=== PATIENT | male | born 1960 | race Caucasian/White ===

== ENCOUNTER → 2019-06-14 15:16 | Outpatient (BNVA) | payer MEDICARE, SELFPAY | PROVIDERS: Family Provider Family Medicine; PCP Nurse Practitioner; Visit Provider Nurse Practitioner | DX: E78.5 Hyperlipidemia, unspecified (principal); I10 Essential (primary) hypertension; E11.42 Type 2 diabetes mellitus with diabetic polyneuropathy; Z76.89 Persons encountering health services in other specified circumstances | CPT/HCPCS: 80053; 80061 ==

== ENCOUNTER → 2019-06-20 11:23 | Outpatient (BNVA) | payer MEDICARE, SELFPAY | PROVIDERS: Family Provider Family Medicine; PCP Nurse Practitioner; Visit Provider Nurse Practitioner | DX: E11.42 Type 2 diabetes mellitus with diabetic polyneuropathy (principal); I10 Essential (primary) hypertension | CPT/HCPCS: 83036; 85025 ==

== ENCOUNTER → 2019-11-30 13:21 | Outpatient (BNVA) | payer MEDICARE, SELFPAY | PROVIDERS: Family Provider Family Medicine; PCP Nurse Practitioner; Visit Provider Family Medicine | DX: I10 Essential (primary) hypertension (principal); E11.42 Type 2 diabetes mellitus with diabetic polyneuropathy; E78.5 Hyperlipidemia, unspecified; Z68.34 Body mass index [BMI] 34.0-34.9, adult; F17.223 Nicotine dependence, chewing tobacco, with withdrawal | CPT/HCPCS: 80053; 80061; 82043; 83036; 85025 ==

== ENCOUNTER 2019-12-11 20:10 | Emergency (ER) | payer MEDICARE, SELFPAY ==
[2019-12-11 20:35] VITALS: BP 182/92; PULSE 79; RESP 14; TEMP 37; O2SAT 98; BMI 34.7
--- NOTE | 2019-12-11 20:43 | W.ED.UPPEXIN ---
HPI - Extremity Injury (Upper) General: Chief Complaint: Extremity Injury, Upper Stated Complaint: caught finger between forklift and truck Time Seen by Provider: 12/11/19 20:26 Source: patient Mode of arrival: ambulatory Limitations: no limitations History of Present Illness: HPI narrative: Patient is a 59-year-old male who presents to ED today with a complaint of an injury to his left ring finger that he sustained just prior to arrival after catching it between 2 pieces of heavy machinery. Last tetanus is unknown. complaint: injury to: left and finger Onset (ago): hour(s) Place: home Severity: moderate Relieving factors: none Exacerbating factors: none Context: crush Associated symptoms: Reports no associated symptoms Review of Systems Musc: Reports: extremity pain (L ring finger) PFS ED PFSH: Medical History (Updated 12/11/19 @ 21:14 by NEAL Cuello) Hyperlipidemia Hypertension Type 2 diabetes mellitus with diabetic polyneuropathy, without long-term current use of insulin Surgical History History of colon surgery History of elbow surgery right History of hip surgery right Status post left foot surgery Family History Other Cancer Diabetes Diabetes insipidus Heart disease Hypertension Stroke Social History Smoking and tobacco status: current every day smoker smokeless tobacco Smokeless tobacco user: chewing tobacco Smokeless tobacco details: 1 can every 2-3 days Alcohol intake: never History of recent travel: No Physical Exam Const: COMMON NORMALS: no acute distress, patient oriented x3, no limitations and alert Extremity: GENERAL: Yes normal exam except as noted OTHER: pt with distal tip amputation of L ring finger with nail involvement; there does not appear to be exposed bone at this time Neuro: COMMON NORMALS: patient oriented x3, moves all extremities, no focal motor deficits and no sensory deficits noted SENSORIUM/ORIENTATION: Yes alert Skin: OTHER: see extremity assessment Course Vital Signs: Vital signs: Vital Signs Temperature 98.6 F 12/11/19 20:35 Pulse Rate 73 12/11/19 22:07 Respiratory Rate 18 12/11/19 22:07 Blood Pressure 147/81 09/13/20 22:07 Pulse Oximetry 98 12/11/19 22:07 MDM - Extremity Injury (Upper) MDM Narrative: Medical decision making narrative: Patient does not have enough skin left to create skin flap. He would require rongeuring his distal phalanx to create this and I do not feel comfortable doing this from the ED. Finger was soaked, cleaned, and dressed and he will be referred to orthopedics. He will be instructed on wet to dry dressings. Tetanus updated. He was given 1g Ancef here. Imaging Data^: XR L finger: Radiologist's impression: [facility] [address] [place] [address] XRay Report Signed Patient: Baljit Goldstein Unit #: [id number] : 1960 Age/Sex: 59 / M ADM Date: 12/11/19 Loc: ER Room/Bed: Attending Dr: Ordering Provider/Ordering MD: Mica Miller Date of Service: 12/11/19 Procedure(s): XR finger LT min 2V [id number] Accession Number(s): [id number] Report Number: [id number] PROCEDURE INFORMATION: Exam: XR Left Finger(s) Exam date and time: 12/11/2019 9:02 PM Age: 59 years old Clinical indication: Injury or trauma; Injury history: Cut tip of 4th finger left hand by getting it caught between; Initial encounter; Blunt trauma (contusions or hematomas); Ring finger; Injury date: Today; Patient HX: Tip of left 4th finger cut; Additional info: Trauma; 4th. Hand images already done before finger order placed. TECHNIQUE: Imaging protocol: XR Left fingers. Views: Minimum 2 views. COMPARISON: No relevant prior studies available. FINDINGS: Bones/joints: There is traumatic amputation of the tip of the 4th finger. There is a mildly displaced tuft fracture of the medial tip of the 4th distal phalanx. No dislocation. Normal bone mineralization. Soft tissues: Mild soft tissue swelling at the distal 4th finger. No radiopaque foreign body. XR/XR finger LT min 2V [id number] IMPRESSION: 1. There is a mildly displaced tuft fracture of the medial tip of the 4th distal phalanx. 2. There is traumatic amputation of the tip of the 4th finger. 3. Mild soft tissue swelling at the distal 4th finger. Dictated By: Frieda Damian MD Signed By: Frieda Damian MD Signed Date/Time: 12/11/192136 DD/ 35 Discharge Plan Discharge Patient Disposition: Home Clinical Impression: Open fracture of tuft of distal phalanx of finger 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 Qualifiers: Encounter type: initial encounter Qualified Code(s): S68.625A - Partial traumatic transphalangeal amputation of left ring finger, initial encounter Condition: Stable Prescriptions: New hydrocodone-acetaminophen 5-325 mg tablet 1 tab PO Q6H PRN (Reason: pain) Qty: 14 RF: 0 Keflex 500 mg capsule 500 mg PO Q6H 7 Days Qty: 28 RF: 0 No Action aspirin 81 mg tablet,delayed release (DR/EC) 81 mg PO DAILY RF: 0 acetaminophen [Tylenol] 325 mg tablet 325 mg PO QID PRNRF: 0 metformin 1,000 mg tablet 1,000 mg PO BID Qty: 180 RF: 0 hydrochlorothiazide 12.5 mg tablet 12.5 mg PO DAILY Qty: 90 RF: 0 atorvastatin 20 mg tablet 20 mg PO DAILY Qty: 90 RF: 0 pregabalin [Lyrica] 75 mg capsule 75 mg PO BID Qty: 60 RF: 0 (DME) diabetic shoes See Rx Instructions .Route .MEDSUPPLY Qty: 1 RF: 0 losartan 50 mg tablet 50 mg PO DAILY 30 Days Qty: 90 RF: 0 glyburide 5 mg tablet 5 mg PO DAILY Qty: 90 RF: 0 Januvia 100 mg tablet 100 mg PO DAILY Qty: 30 RF: 0 Discharge Orders: Discharge Order (Routine); Ordered 12/11/19 Ordered By: Mica Miller Referrals: Manuela Spencer FNP [Primary Care Provider] - Siena Gracia DO [Family Provider] - Patient Instructions: Finger Amputation (Surgical), Finger Fracture (ED), Finger Amputation (ED), Finger Laceration (ED) Activity Restrictions/Additional Instructions: As discussed you need to continue to do wet-to-dry dressings as instructed. Begin your antibiotics immediately. Case management should contact you shortly to set you up with your orthopedic appointment. As discussed they may allow finger to heal on its own or opt for surgical intervention. Monitor for signs of infection such as redness, swelling, pus-like drainage. Discharge Date/Time: 12/11/19 22:09 Coding Level of Care Code ED Rn Documentation Specialist for Chg Fwd Exam Expanded Problem Focused
--- NOTE | 2019-12-11 20:51 | XRR_ITS ---
PROCEDURE INFORMATION: Exam: XR Left Finger(s) Exam date and time: 12/11/2019 9:02 PM Age: 59 years old Clinical indication: Injury or trauma; Injury history: Cut tip of 4th finger left hand by getting it caught between; Initial encounter; Blunt trauma (contusions or hematomas); Ring finger; Injury date: Today; Patient HX: Tip of left 4th finger cut; Additional info: Trauma; 4th. Hand images already done before finger order placed. TECHNIQUE: Imaging protocol: XR Left fingers. Views: Minimum 2 views. COMPARISON: No relevant prior studies available. FINDINGS: Bones/joints: There is traumatic amputation of the tip of the 4th finger. There is a mildly displaced tuft fracture of the medial tip of the 4th distal phalanx. No dislocation. Normal bone mineralization. Soft tissues: Mild soft tissue swelling at the distal 4th finger. No radiopaque foreign body. XR/XR finger LT min 2V [id number] IMPRESSION: 1. There is a mildly displaced tuft fracture of the medial tip of the 4th distal phalanx. 2. There is traumatic amputation of the tip of the 4th finger. 3. Mild soft tissue swelling at the distal 4th finger.
[2019-12-11] MEDS: ceFAZolin 1,000 MG in sodium chloride 0.9% (plus) 50 ML 100 MG IM (22:01)
[2019-12-11] MEDS: tetanus-diphtheria tox (adult) 0.5 mL SDV IM (22:03)
[2019-12-11] MEDS: HYDROcodone-acetaminophen 5-325 mg Tablet 2 TAB PO (22:06)
[2019-12-11 22:07] VITALS: BP 147/81; PULSE 73; RESP 18; O2SAT 98
--- NOTE | 2019-12-12 09:29 | DCPLANNER ---
continuity manager had message to schedule a follow up appointment for patient with ortho. continuity manager called the ortho clinic, spoke with Pat, gave clinic patients information. continuity manager was told that patients information would be printed and reviewed. Clinic will call patient with appointment information.
--- NOTE | 2019-12-13 13:01 | DCPLANNER ---
Patient had an appointment scheduled for 12.12.19 with ortho. Patient did attend the appointment.
== END 2019-12-11 22:09 | disposition home or self-care (01) ==
PROVIDERS: Emergency Provider Physician Assistant; Family Provider Family Medicine; PCP Nurse Practitioner
DX: S62.635B Displaced fracture of distal phalanx of left ring finger, initial encounter for open fracture (principal); S68.625A Partial traumatic transphalangeal amputation of left ring finger, initial encounter; Z79.82 Long term (current) use of aspirin; E78.5 Hyperlipidemia, unspecified; I10 Essential (primary) hypertension; E11.9 Type 2 diabetes mellitus without complications; F17.220 Nicotine dependence, chewing tobacco, uncomplicated; W31.89XA Contact with other specified machinery, initial encounter; Z23 Encounter for immunization
CPT/HCPCS: 12345; 73140; 90471; 90714; 96365; 96372; 99281; 99283; J0690

== ENCOUNTER → 2019-12-14 09:48 | Outpatient (BNVA) | payer MEDICARE, SELFPAY | PROVIDERS: Family Provider Family Medicine; PCP Nurse Practitioner; Visit Provider Specialist | DX: Z11.59 Encounter for screening for other viral diseases (principal) | CPT/HCPCS: 87635 ==

== ENCOUNTER 2019-12-16 06:46 | Day surgery (SDC) | payer MEDICARE, SELFPAY ==
[2019-12-15 14:22] VITALS: BMI 34.7
[2019-12-16] MEDS: CELEcoxib 200 mg Capsule 400 MG PO (07:10)
[2019-12-16 07:15] VITALS: BP 165/92; PULSE 70; RESP 18; TEMP 36.4; O2SAT 97
[2019-12-16] MEDS: sodium chloride 0.9% 1,000 ML 30 ML IV (07:32)
[2019-12-16] MEDS: vancomycin 1,000 MG in sodium chloride 0.9% 250 ML 250 MG IV (07:33)
[2019-12-16 07:34] LABS: Basophils # 0.1 10^3/uL (0.0-0.1); Eosinophils # 0.3 10^3/uL (0.0-0.8); Hematocrit 44.1 % (42.0-52.0); Hemoglobin 14.5 g/dL (11.7-16.6); Lymphocytes # 2.9 10^3/uL (0.8-4.8); Lymphocytes % 40.2 %; Mean Corpuscular HGB Conc 32.9 g/dL (30.0-36.0); Mean Corpuscular Volume 91.3 fL (80-94); Monocytes # 0.6 10^3/uL (0.2-0.9); Monocytes % 8.6 %; Neutrophils # 3.27 10^3/uL (1.8-7.7); Neutrophils % 45.4 %; Nucleated Red Blood Cells % 0 %; Platelet Count 147 10^3/cmm (130-400); Red Blood Count 4.83 10^6/uL (4.1-5.3); White Blood Count 7.2 10^3/uL (4.0-10.0)
--- NOTE | 2019-12-16 07:39 | P.ANESASSM_ITS ---
Pre-Anesthetic Assessment Pre-Anesthetic Assessment: Height/Weight: Height 1.7 m Weight 100.698 kg Temp Pulse Resp BP Pulse Ox 97.5 F L 70 18 165/92 97 12/16/19 07:15 12/16/19 07:15 12/16/19 07:15 12/16/19 07:15 12/16/19 07:15 Preop Diagnosis: Traumatic partial amputation left ring finger through phalanx Proposed Procedure: Operation Date: 12/16/19 08:30 Proposed Procedures p Left Ring Finger revision Amputation Finger 06871 S68.115A(Left) - Sarah Wray MD Familial anesthetic complications: None Was Beta Eloy taken within 24 hours: N/A Last intake: Intake Last Liquid Date 12/15/19 Last Liquid Time 22:00 Last Solid Date 12/15/19 Last Solid Time 22:00 Social: Social History: Tobacco and No alcohol Comment: chews Exam: Pre-Anes Outpt Exam: alert, oriented x 3, clear to auscultation bilaterally and regular rate & rhythm Airway: Cervical ROM: WNL MP: 3 Dentition: Full Pulmonary: Pulmonary: Sleep apnea (patient refuses CPAP) CV/HEM: CV/HEM: HTN Metabolic: Metabolic: Hyperlipidemia and Morbid obesity Anesthetic Plan: ASA status: 3 Anesthesia: MAC and Regional (specify below) (reyes block) Risk of > 500 ml blood loss (7ml/kg in children): No Meds/Allergies Current Medications: Current Medications Generic Name Dose Route Start Last Admin Trade Name Freq PRN Reason Stop Dose Admin Vancomycin HCl 1,0 00 mg/ 250 mls @ 250 mls /hr 12/16/19 07:30 12/16/19 07:33 Sodium Chloride IV 12/16/19 08:29 250 mls/hr ONCE ONE Administration Protocol Sodium Chloride 1,000 mls @ 30 ml s/hr 12/16/19 07:15 12/16/19 07:32 Sodium Chloride 0.9% IV 12/17/19 07:14 30 mls/hr .Q24H MARIE Administration PFSH Anesthesia PFSH: Medical History Hyperlipidemia Hypertension Type 2 diabetes mellitus with diabetic polyneuropathy, without long-term current use of insulin Surgical History History of colon surgery History of elbow surgery right History of hip surgery right Status post left foot surgery Family History Other Cancer Diabetes Diabetes insipidus Heart disease Hypertension Stroke Social History Smoking and tobacco status: current every day smoker smokeless tobacco Smokeless tobacco user: chewing tobacco Smokeless tobacco details: 1 can every 2-3 days Alcohol intake: never History of recent travel: No Data Anesthesia CBC & Chem 7: 12/16/19 07:25 12/16/19 07:25 Other Labs: Laboratory Results - last 48 hr 12/16/19 07:25 WBC 7.2 RBC 4.83 Hgb 14.5 Hct 44.1 MCV 91.3 MCH 30.0 MCHC 32.9 RDW 12.0 L Plt Count 147 MPV 10.0 Neut % (Auto) 45.4 Lymph % (Auto) 40.2 Carroll % (Auto) 8.6 Eos % (Auto) 4.0 Baso % (Auto) 1.0 Neut # (Auto) 3.27 Lymph # (Auto) 2.9 Carroll # (Auto) 0.6 Eos # (Auto) 0.3 Baso # (Auto) 0.1 Nucleated RBC % (auto) 0 Nucleated RBCs # 0.0 Cardiac Studies: No Data to Display
[2019-12-16 07:46] LABS: Glucose Point of Care 163 mg/dL (70-110)
[2019-12-16 07:55] LABS: Anion Gap 15.9 (5-19); Blood Urea Nitrogen 12 mg/dL (6-20); Calcium 9.9 mg/dL (8.5-10.5); Carbon Dioxide 24 mmol/L (22-29); Chloride 101 mmol/L (98-107); Glomerular Filtration Rate 68.8 mL/min (90-130); Glucose 174 mg/dL (65-115); Osmolality Calculated 288 mOsm/kg (285-295); Potassium 3.9 mmol/L (3.5-5.1); Sodium 137 mmol/L (136-145)
--- NOTE | 2019-12-16 08:07 | W.PM.OPSUD ---
Surgery/Procedure H&P Update DATE OF PROCEDURE: December 16, 2019 DATE H&P PERFORMED: 12/14/19 H&P UPDATE INFORMATION: I have reviewed H&P completed within last 30 days, I have examined patient prior to procedure and H&P is in [facility] EMR on date indicated PREOP DIAGNOSIS: Traumatic partial amputation left ring finger through phalanx PLANNED PROCEDURE: Operation Date: 12/16/19 08:30 Proposed Procedures p Left Ring Finger revision Amputation Finger 12383 S68.115A(Left) - Sarah Wray MD Related Problem List Diagnoses (1) 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: Qualifiers: Encounter type: initial encounter Qualified Code(s): S68.625A - Partial traumatic transphalangeal amputation of left ring finger, initial encounter (2) Open fracture of tuft of distal phalanx of finger:
[2019-12-16] MEDS: ceFAZolin 1,000 mg SDV 1000 MG IRRIGATION (09:11)
[2019-12-16] MEDS: silvasorb gel 44.4 mL 1 APPLIC TOPICAL (09:18)
[2019-12-16 09:46] VITALS: BP 122/85; PULSE 84; RESP 18; TEMP 36.4; O2SAT 95
--- NOTE | 2019-12-16 09:51 | PM.OP ---
Operative Report Date of procedure: December 16, 2019 Pre-op Diagnosis: Traumatic partial amputation left ring finger through distal phalanx Post-op diagnosis: same Post-op Findings: Degloving injury with exposed distal phalanx left ring finger Procedure Done: Revision amputation with removal of bone and soft tissues. Nail bed ablation, sharp. Wound closure. Implants: None Specimens removed/disposition: Bone, disposed of Pathology: none sent Surgeon: Sarah Wray Research Project Coordinator: None Anesthesia: MAC (With Matador block) Estimated blood loss (mL): 5 Tourniquet time (min): 40 Tourniquet time: At 250 mmHg IV fluids (mL): 500 Urine output (mL): 0 Complications: None Findings: Degloving injury to the distal left ring finger with exposed bone involving the distal phalanx. Condition: stable Disposition: same day Brief History: This 59-year-old gentleman was in his usual state of health when he got his finger caught between a trailer and his bumper. He pulled his finger out causing a degloving injury as well as a distal phalanx fracture with a small loss of bone and definite loss of soft tissue. He presented to the office with obvious degloving injury and exposed bone. He therefore was scheduled for the above procedure. Procedure: Patient was brought to the operating theater. He was placed on the operating room table. A Matador block was administered without difficulty. Patient tolerated it well. 1 g of vancomycin was administered. A tourniquet was placed high on the arm and was elevated for the Matador block. This followed exsanguination of the arm. Tourniquet time was 40 minutes at 250 mmHg. Surgical pause was performed prior to commencement of the surgical procedure. At the time of the surgical pause we identified the site and side of surgery. We also identified the patient's identity and appropriate administration of IV antibiotics. Following the surgical pause, an incision was made over the tip of the finger longitudinally. This allowed us to debride soft tissue which was obviously somewhat necrotic. We were able to expose the distal aspect of the distal phalanx, and this was removed with a bone biter. It was smoothed with a rongeur and subsequently more bone was removed as necessary to provide a non-tension closure. The nailbed was also removed. A sharp ablation was accomplished of the germinal matrix, however, this was not done aggressively as this was necessary soft tissue for closure. Necrotic areas were debrided. These remainder of the granulation tissue was freshened. We were then able to close with a mattress type III 0 nylon interrupted closure. Following this, silver sorb was placed with an Adaptic and tube gauze dressing. He will be discharged home to follow-up with me in the office. There were no complications and no specimens. Associated Problem List Diagnoses (1) 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: Qualifiers: Encounter type: initial encounter Qualified Code(s): S68.625A - Partial traumatic transphalangeal amputation of left ring finger, initial encounter (2) Open fracture of tuft of distal phalanx of finger:
--- NOTE | 2019-12-16 09:57 | ANE.PACU2 ---
Inpatient post-anesthesia follow up: Airway intact: Yes Vital signs: Temperature 97.6 F Pulse Rate 84 Respiratory Rate 18 Blood Pressure 122/85 Pulse Oximetry 95 Oxygen Delivery Me thod Room Air Oxygen Flow Rate Fraction of Inspir ed Oxygen Hydration adequate: Yes Nausea and vomiting: No Pain level: 1 Mental status: Baseline
[2019-12-16 09:59] VITALS: BP 137/78; PULSE 74; RESP 18; TEMP 36.4; O2SAT 97
== END 2019-12-16 10:15 | disposition home or self-care (01) ==
PROVIDERS: Family Provider Family Medicine; PCP Nurse Practitioner; Visit Provider Specialist
PROC: (CPT 26951; principal; 2019-12-16 08:30)
DX: S68.625A Partial traumatic transphalangeal amputation of left ring finger, initial encounter (principal); G47.30 Sleep apnea, unspecified; I10 Essential (primary) hypertension; E78.5 Hyperlipidemia, unspecified; E66.01 Morbid (severe) obesity due to excess calories; E11.42 Type 2 diabetes mellitus with diabetic polyneuropathy; F17.220 Nicotine dependence, chewing tobacco, uncomplicated; Z79.82 Long term (current) use of aspirin; Z79.84 Long term (current) use of oral hypoglycemic drugs; W23.0XXA Caught, crushed, jammed, or pinched between moving objects, initial encounter; Z68.34 Body mass index [BMI] 34.0-34.9, adult
CPT/HCPCS: 26951; 12345; 36416; 80048; 82962; 85025; 96365; J0131; J0690; J2250; J2405; J2704; J3370; J7030; J7050

== ENCOUNTER → 2019-12-29 14:23 | Outpatient (BNVA) | payer MEDICARE, SELFPAY | PROVIDERS: Family Provider Family Medicine; PCP Nurse Practitioner; Visit Provider Specialist | DX: S68.625A Partial traumatic transphalangeal amputation of left ring finger, initial encounter (principal); X58.XXXA Exposure to other specified factors, initial encounter | CPT/HCPCS: 73140 ==

== ENCOUNTER → 2019-12-30 13:14 | Outpatient (BNVA) | payer MEDICARE, SELFPAY | PROVIDERS: Family Provider Family Medicine; PCP Nurse Practitioner; Visit Provider Family Medicine | DX: R79.89 Other specified abnormal findings of blood chemistry (principal); E11.42 Type 2 diabetes mellitus with diabetic polyneuropathy; F17.299 Nicotine dependence, other tobacco product, with unspecified nicotine-induced disorders; R74.8 Abnormal levels of other serum enzymes | CPT/HCPCS: 80053; 80074 ==

== ENCOUNTER 2020-02-22 12:50 | Outpatient (CLI) | payer MEDICARE, SELFPAY ==
--- NOTE | 2020-02-22 13:30 | US_ITS ---
WS: [id number] RIGHT UPPER QUADRANT ULTRASOUND HISTORY: elevated LFTs COMPARISON: 09/03/2015 Liver: 17.4 cm in length. Liver is moderately enlarged with coarse echotexture. Mild hepatic steatosi s. No mass or bile duct dilatation. Gallbladder: No gallbladder identified. Denies prior history of cholecystectomy. CBD: 0.7 cm Pancreas: Tail of the pancreas is not visualized. Right kidney: 11.7 cm in length. Normal size and echogenicity. No hydronephrosis or mass. Aorta and IVC: Unremarkable abdominal aorta and IVC. No ascites. US/US abdomen limited [id number] IMPRESSION: 1. Mild hepatic steatosis and hepatomegaly. 2. Gallbladder not identified. Patient denies having a prior cholecystectomy.
== END 2020-02-22 12:51 | disposition home or self-care (01) ==
LOC: US 12:53
PROVIDERS: PCP Nurse Practitioner; Visit Provider Family Medicine
DX: R94.5 Abnormal results of liver function studies (principal)
CPT/HCPCS: 76705

== ENCOUNTER → 2020-03-01 09:00 | Outpatient (BNVA) | payer MEDICARE, SELFPAY | PROVIDERS: PCP Family Medicine; Visit Provider Family Medicine | DX: E11.42 Type 2 diabetes mellitus with diabetic polyneuropathy (principal) | CPT/HCPCS: 80053; 83036 ==

== ENCOUNTER 2020-05-23 12:46 | Outpatient (CLI) | payer MEDICARE, SELFPAY ==
--- NOTE | 2020-05-23 12:52 | XR_ITS ---
WS: [id number] LUMBAR SPINE: 3 VIEWS TECHNIQUE: AP, lateral and L5-S1 spot. HISTORY: low back pain COMPARISON: None available. Lumbar vertebra are normally aligned. Mild disc space narrowing throughout the lumbar spine. No fractures. Mild facet joint arthritis at L4 -5 and L5-S1. Pedicles are all identified. SI joints are symmetric bilaterally. No soft tissue abnormalities. XR/XR lumbar spine 2-3V* [id number] IMPRESSION: 1. Mild lumbar spondylosis. No fracture. 2. Mild facet joint arthritis at L4-5 and L5-S1.
== END 2020-05-23 12:47 | disposition home or self-care (01) ==
LOC: RADWPI 12:52
PROVIDERS: PCP Family Medicine; Visit Provider Family Medicine
DX: M47.816 Spondylosis without myelopathy or radiculopathy, lumbar region (principal); M47.817 Spondylosis without myelopathy or radiculopathy, lumbosacral region
CPT/HCPCS: 72100; 80053

== ENCOUNTER 2020-06-21 09:42 | Outpatient (CLI) | payer MEDICARE, SELFPAY ==
--- NOTE | 2020-06-21 09:50 | XR_ITS ---
WS: [id number] PROCEDURE: XR chest 2V* [id number] CLINICAL INFORMATION: sob COMPARISON: FINDINGS: Heart: Normal cardiac silhouette. Lungs: Lungs are clear. No consolidation or pleural fluid. No acute pulmonary infiltrates. Bones: Mild thoracic curve. Mild thoracic kyphosis. Hypertrophic changes mid and lower thoracic spine . XR/XR chest 2V* [id number] IMPRESSION: No acute pulmonary infiltrates. No acute chest findings.
== END 2020-06-21 09:43 | disposition home or self-care (01) ==
PROVIDERS: PCP Family Medicine; Visit Provider Family Medicine
DX: R06.02 Shortness of breath (principal); E11.42 Type 2 diabetes mellitus with diabetic polyneuropathy
CPT/HCPCS: 71046; 80061; 82043; 83036

== ENCOUNTER → 2020-08-21 09:27 | Outpatient (BNVA) | payer MEDICARE, SELFPAY | PROVIDERS: PCP Family Medicine; Visit Provider Family Medicine | DX: E11.42 Type 2 diabetes mellitus with diabetic polyneuropathy (principal); H69.80 Other specified disorders of Eustachian tube, unspecified ear | CPT/HCPCS: 80048; 85025 ==

== ENCOUNTER → 2020-11-20 10:52 | Outpatient (BNVA) | payer MEDICARE, SELFPAY | PROVIDERS: PCP Family Medicine; Visit Provider Family Medicine | DX: E11.42 Type 2 diabetes mellitus with diabetic polyneuropathy (principal); B35.4 Tinea corporis | CPT/HCPCS: 80053; 83036 ==

== ENCOUNTER 2021-02-08 14:19 | Inpatient (IN) | payer MEDICARE, SELFPAY ==
[2021-02-08 14:37] VITALS: BP 172/82; PULSE 81; RESP 18; TEMP 36.7; O2SAT 99; BMI 33.6
--- NOTE | 2021-02-08 14:51 | XR_ITS ---
WS: [id number] Right foot, 3 views, 02/08/2021 Clinical Data: foot pain Comparison: None. Findings: No fractures or dislocations are seen. No bone destruction or erosion is noted. The joint spaces and soft tissues are normal. XR/XR foot RT min 3V* [id number] Impression: Negative right foot.
--- NOTE | 2021-02-08 14:53 | ED_ITS ---
HPI - Extremity Problem General: Chief complaint: Extremity Injury, Lower Stated complaint: Injury to Right Foot Time Seen by Provider: 02/08/21 14:51 History of Present Illness: HPI Narrative: 60-year-old male presents emergency room with large amount of swelling to his right foot. Patient puncture wound to his foot 3 days ago. He was seen initially started antibiotics has had significant increase in swelling of the foot since then increasing pain per pr ogressing proximal. He denies any fever sweats and chills. Patient does have a history of diabetes mellitus. MD Complaint: extremity pain and extremity swelling Onset (ago): day(s) Pain Consistency: constant Location: right Quality: aching Radiation: proximal Relieving factors: nothing Exacerbating factors: nothing Associated symptoms: Deny arthralgias, chest pain, fever(s), myalgias, rash or short of breath Review of Systems Const: Denies: fever(s) ENMT: Denies: throat pain, ear or mastoid pain, nasal discharge or nasal congestion Card: Denies: chest pain Resp: Denies: dyspnea, productive cough or non-productive cough GI: Denies: abdominal pain, nausea, vomiting, hematemesis, coffee ground emesis, diarrhea, constipation, bloating, hematochezia or melena : Denies: flank pain, dysuria, urinary frequency or urinary urgency Skin/Breast: Denies: rash PFSH ED PFSH: Medical History (Updated 02/09/21 @ 11:50 by Gio Dietrich DO) Diabetic neuropathy Hyperlipidemia Hypertension Type 2 diabetes mellitus with diabetic polyneuropathy, without long-term current use of insulin Surgical History History of colon surgery History of elbow surgery right History of hip surgery right Status post left foot surgery Family History Other Cancer Diabetes Diabetes insipidus Heart disease Hypertension Stroke Social History Smoking and tobacco status: current every day smoker (chew) smokeless tobacco Smokeless tobacco user: chewing tobacco Smokeless tobacco details: 1 can every 2-3 days Alcohol intake: never Lives independently: Yes Household members: significant other Marital status: Current occupational status: disabled History of recent travel: No Physical Exam Const: COMMON NORMALS: no acute distress GENERAL APPEARANCE: cooperative and comfortable ORIENTATION/CONSCIOUSNESS: Yes awake, Yes oriented to person, Yes oriented to place and Yes oriented to time HENMT: COMMON NORMALS: normocephalic, atraumatic and hearing grossly normal bilaterally HEAD & SCALP: normocephalic and atraumatic Neck/C-Spine: COMMON NORMALS: no JVD Resp: COMMON NORMALS: normal respiratory effort, No retractions, No use of a ccessory muscles and clear to auscultation bilaterally AUSCULTATION: clear to auscultation bilaterally Cardio: COMMON NORMALS: no JVD, regular rate, regular rhythm and No murmurs present (Cardio) RATE: regular rate RHYTHM: regular rhythm GI: COMMON NORMALS: Soft to palpation and No hepatosplenomegaly present AUSCULTATION: Yes normoactive bowel sounds PALPATION: Yes Soft to palpation, No Tenderness to palpation present (GI), No Guarding due to palpation present (GI) and Yes No hepatosplenomegaly present Extremity: OTHER: Violaceous discoloration of the foot to the level of the ankle. There is no evidence of active drainage. There is swelling mild induration Neuro: SENSORIUM/ORIENTATION: Yes oriented to person, Yes oriented to place and Yes oriented to time Skin: COMMON NORMALS: no rashes or lesions noted GENERAL SKIN EXAM: no rashes or lesions noted Course Vital Signs: Vital signs: Vital Signs Temperature 97.9 F 02/09/21 11:31 Pulse Rate 77 02/09/21 11:31 Respiratory Rate 16 02/09/21 11:31 Blood Pressure 126/73 02/09/21 11:31 Pulse Oximetry 94 02/09/21 11:31 MDM - Extremity (Nontraumatic) MDM Narrative: Medical decision making narrative: Initial read of the venous duplex by the tech was reported not have a DVT. Radiology read is having some small amount of debris in the right common femoral and superficial femoral. Is nonocclusive however. CT does show abscess formation along the first metatarsal. Given the patient's history of diabetes and progression of this and the CT findings he did will require hospitalization. Discussed with hospitalist. Orders are written consult Dr. Spence in the event that the patient needs surgical intervention. Have discussed Dr. Spence as well. Lab Data: Labs: Lab Results 02/08/21 02/08/21 02/08/21 13:50 13:50 13:50 WBC 10.7 10^3/uL H 10 ^3/uL (4.0-10.0) RBC 5.03 10^6/uL 10^6 /uL (4.1-5.3) Hgb 14.5 g/dL g/dL (11.7-16.6) Hct 44.7 % % (42.0-52.0) MCV 88.9 fl fl (80-94) MCH 28.8 pg pg (28.0-34.0) MCHC 32.4 g/dL g/dL (30.0-36.0) RDW 12.3 % % (12.1-15.1) Plt Count 263 10^3/cmm 10^3 /cmm (130-400) MPV 9.4 fL fL (7.4-10.4) Neut % (Auto) 68.0 % % Lymph % (Auto) 16.9 % % [place] % (Auto) 10.7 % % Eos % (Auto) 2.8 % % Baso % (Auto) 0.9 % % Neut # (Auto) 7.31 10^3/uL 10^3 /uL (1.8-7.7) Lymph # (Auto) 1.8 10^3/uL 10^3/ uL (0.8-4.8) [place] # (Auto) 1.2 10^3/uL H 10^ 3/uL (0.2-0.9) Eos # (Auto) 0.3 10^3/uL 10^3/ uL (0.0-0.8) Baso # (Auto) 0.1 10^3/uL 10^3/ uL (0.0-0.1) Nucleated RBC % (a uto) 0 % % Nucleated RBCs # 0.0 /100WBC /100W BC APTT Sodium 132 mmol/L L mmol /L (136-145) Potassium 3.8 mmol/L mmol/L (3.5-5.1) Chloride 94 mmol/L L mmol/ L (98-107) Carbon Dioxide 25 mmol/L mmol/L (22-29) Anion Gap 16.8 (5-19) BUN 14 mg/dL mg/dL (6-20) Creatinine 1.0 mg/dL mg/dL (0.7-1.2) GFR Calculation 76.5 mL/min L mL/ min (90-130) Glucose 179 mg/dL H mg/dL (65-115) POC Glucose Estimat Average Gl ucose 203 Hemoglobin A1c 8.7 % H % (4.0-6.0) Calculated Osmolal ity 279 mOsm/kg L mOs m/kg (285-295) Calcium 10.3 mg/dL mg/dL (8.5-10.5) Total Bilirubin 0.9 mg/dL mg/dL (0.15-1.2) AST 26 U/L U/L (0-40) ALT 35 U/L U/L (0-41) Alkaline Phosphata se 123 IU/L IU/L (40-130) Total Protein 8.5 g/dL g/dL (6.6-8.7) Albumin 4.1 g/dL g/dL (3.5-5.2) Globulin 4.4 g/dL g/dL (1.3-4.6) 02/08/21 02/09/21 02/09/21 23:06 05:00 05:00 WBC 10.2 10^3/uL H 10 ^3/uL (4.0-10.0) RBC 4.74 10^6/uL 10^6 /uL (4.1-5.3) Hgb 13.8 g/dL g/dL (11.7-16.6) Hct 43.2 % % (42.0-52.0) MCV 91.1 fl fl (80-94) MCH 29.1 pg pg (28.0-34.0) MCHC 31.9 g/dL g/dL (30.0-36.0) RDW 12.4 % % (12.1-15.1) Plt Count 253 10^3/cmm 10^3 /cmm (130-400) MPV 9.3 fL fL (7.4-10.4) Neut % (Auto) 56.9 % % Lymph % (Auto) 27.9 % % [place] % (Auto) 9.3 % % Eos % (Auto) 3.7 % % Baso % (Auto) 0.9 % % Neut # (Auto) 5.80 10^3/uL 10^3 /uL (1.8-7.7) Lymph # (Auto) 2.9 10^3/uL 10^3/ uL (0.8-4.8) [place] # (Auto) 1.0 10^3/uL H 10^ 3/uL (0.2-0.9) Eos # (Auto) 0.4 10^3/uL 10^3/ uL (0.0-0.8) Baso # (Auto) 0.1 10^3/uL 10^3/ uL (0.0-0.1) Nucleated RBC % (a uto) 0 % % Nucleated RBCs # 0.0 /100WBC /100W BC APTT 29.5 SECONDS SECO NDS (23.9-36.7) Sodium 138 mmol/L mmol/L (136-145) Potassium 4.0 mmol/L mmol/L (3.5-5.1) Chloride 99 mmol/L mmol/L (98-107) Carbon Dioxide 25 mmol/L mmol/L (22-29) Anion Gap 18.0 (5-19) BUN 16 mg/dL mg/dL (6-20) Creatinine 1.3 mg/dL H mg/dL (0.7-1.2) GFR Calculation 56.5 mL/min L mL/ min (90-130) Glucose 181 mg/dL H mg/dL (65-115) POC Glucose Estimat Average Gl ucose Hemoglobin A1c Calculated Osmolal ity 292 mOsm/kg mOsm/ kg (285-295) Calcium 10.0 mg/dL mg/dL (8.5-10.5) Total Bilirubin 0.7 mg/dL mg/dL (0.15-1.2) AST 27 U/L U/L (0-40) ALT 35 U/L U/L (0-41) Alkaline Phosphata se 136 IU/L H IU/L (40-130) Total Protein 7.7 g/dL g/dL (6.6-8.7) Albumin 3.6 g/dL g/dL (3.5-5.2) Globulin 4.1 g/dL g/dL (1.3-4.6) 02/09/21 02/09/21 05:00 06:11 WBC RBC Hgb Hct MCV MCH MCHC RDW Plt Count MPV Neut % (Auto) Lymph % (Auto) [place] % (Auto) Eos % (Auto) Baso % (Auto) Neut # (Auto) Lymph # (Auto) [place] # (Auto) Eos # (Auto) Baso # (Auto) Nucleated RBC % (a uto) Nucleated RBCs # APTT 46.4 SECONDS H D SECONDS (23.9-36.7) Sodium Potassium Chloride Carbon Dioxide Anion Gap BUN Creatinine GFR Calculation Glucose POC Glucose 144 mg/dL H mg/dL (70-110) Estimat Average Gl ucose Hemoglobin A1c Calculated Osmolal ity Calcium Total Bilirubin AST ALT Alkaline Phosphata se Total Protein Albumin Globulin Discharge Plan Discharge Patient Disposition: Admitted As Inpatient Admit Provider: Onofre Pineda Clinical Impression: Diabetic foot infection, Foot abscess, Type 2 diabetes mellitus with diabetic polyneuropathy, without long-term current use of insulin, Hypertension, Non- occlusive thrombus Condition: Stable Coding Level of Care Code ED Pharmaceutical Sales Representative for Chg Fwd Exam Detailed
--- NOTE | 2021-02-08 14:57 | USCV_ITS ---
Baljit Goldstein Age: 60 Gender: M : 1960 Exam Date: 02/08/2021 15:15 Ordering Phys: Gio Dietrich DO Technologist: Ade Aguero Exam Location: [facility] – [place] Indication: PAIN R 1ST TOE AND RT KNEE HISTORY: Pain Rt. 1st toe and Rt. Knee. PROCEDURES: The venous duplex Doppler examination of both lower extremities was performed in the standard fashion. The following venous structures were evaluated: common femoral vein, profunda vein, proximal portion of the greater saphenous vein, superficial femoral vein, and the popliteal vein. In addition, the posterior tibial and peroneal trunk were evaluated. Serial compression, augmentation maneuvers, and spectral Doppler flow evaluation were performed. FINDINGS: There is debris along the edge of the Rt. CFV and SFV. It is not obstructive. The vein collapses and flow is easily augmented. The Rt. SSV contains calcified internal debris. All vessels studied have augmentable flow and compression. There is a? Chu's cyst Rt pop fossa. CONCLUSIONS Small amount of debris in the right CFV and SFV likely a small amount of thrombus. No occlusive DVT RLE No evidence of left lower extremity DVT. Rex Elizabeth MD (Electronically Signed) Final Date: 08 February 2021 17:44 S
[2021-02-08 15:58] LABS: Basophils # 0.1 10^3/uL (0.0-0.1); Basophils % 0.9 %; Eosinophils # 0.3 10^3/uL (0.0-0.8); Eosinophils % 2.8 %; Hematocrit 44.7 % (42.0-52.0); Hemoglobin 14.5 g/dL (11.7-16.6); Lymphocytes # 1.8 10^3/uL (0.8-4.8); Lymphocytes % 16.9 %; Mean Corpuscular HGB Conc 32.4 g/dL (30.0-36.0); Mean Corpuscular Hemoglobin 28.8 pg (28.0-34.0); Mean Corpuscular Volume 88.9 fl (80-94); Mean Platelet Volume 9.4 fL (7.4-10.4); Monocytes # 1.2 10^3/uL (0.2-0.9); Monocytes % 10.7 %; Neutrophils # 7.31 10^3/uL (1.8-7.7); Nucleated Red Blood Cells % 0 %; Platelet Count 263 10^3/cmm (130-400); Red Blood Count 5.03 10^6/uL (4.1-5.3); Red Cell Distribution Width 12.3 % (12.1-15.1); White Blood Count 10.7 10^3/uL (4.0-10.0)
[2021-02-08 16:14] LABS: Alanine Aminotransferase 35 U/L (0-41); Albumin Level 4.1 g/dL (3.5-5.2); Alkaline Phosphatase 123 IU/L (40-130); Anion Gap 16.8 (5-19); Aspartate Amino Transferase 26 U/L (0-40); Blood Urea Nitrogen 14 mg/dL (6-20); Calcium 10.3 mg/dL (8.5-10.5); Carbon Dioxide 25 mmol/L (22-29); Chloride 94 mmol/L (98-107); Globulin 4.4 g/dL (1.3-4.6); Glomerular Filtration Rate 76.5 mL/min (90-130); Glucose 179 mg/dL (65-115); Osmolality Calculated 279 mOsm/kg (285-295); Potassium 3.8 mmol/L (3.5-5.1); Sodium 132 mmol/L (136-145); Total Bilirubin 0.9 mg/dL (0.15-1.2); Total Protein 8.5 g/dL (6.6-8.7)
--- NOTE | 2021-02-08 16:31 | CTR_ITS ---
PROCEDURE INFORMATION: Exam: CT Right Lower Extremity With Contrast, Foot Exam date and time: 02/08/2021 4:31 PM Age: 60 years old Clinical indication: Injury or trauma; Puncture; Right; Without foreign body; Injury date: 02-03-21; Patient HX: R foot swelling and redness after stepping on a nail 02-03. Entry ball of foot medial to 1st mt; Additional info: Swelling/infection TECHNIQUE: Imaging protocol: CT of the Right lower extremity with intravenous contrast was performed. Exam focused on the foot. Radiation optimization: All CT scans at this facility use at least one of these dose optimization techniques: automated exposure control; mA and/or kV adjustment per patient size (includes targeted exams where dose is matched to clinical indication); or iterative reconstruction. Contrast material: OMNI 300; Contrast volume: 95 ml; Contrast route: INTRAVENOUS (IV); COMPARISON: CR XR foot RT min 3V* [id number] 02/08/2021 3:01 PM RADIATION DOSE METRICS: Total DLP (mGy-cm): 158.26 FINDINGS: Bones/joints: Normal. No acute fracture or dislocation. Soft tissues: 10 mm suspected focal fluid collection with surrounding subcutaneous edema seen at lateral aspect of the 1st metatarsal head in the subcutaneous fat suggestive of a small abscess, best seen series 2, image 118. CT/CT foot RT w con [id number] IMPRESSION: 10 mm suspected focal fluid collection with surrounding subcutaneous edema seen at lateral aspect of the 1st metatarsal head in the subcutaneous fat suggestive of a small abscess, best seen series 2, image 118. Radiation Dose CTDIVOL = (mGy): DLP = 158.26 (mGy-cm)
[2021-02-08] MEDS: iohexol 300 mg/mL 100 mL Btl IV (17:15)
[2021-02-08] MEDS: piperacillin-tazobactam 3.375 GM in sodium chloride 0.9% (plus) 50 ML IV (18:49)
--- NOTE | 2021-02-08 19:05 | PC.NURSE ---
report given to anshul jones assumed care.
[2021-02-08] MEDS: vancomycin 1,000 MG in sodium chloride 0.9% 250 ML 250 MG IV (19:29)
[2021-02-08] MEDS: HYDROcodone-acetaminophen 5-325 mg Tablet 1 TAB PO (19:38)
[2021-02-08] MEDS: sodium chloride 0.9% 1,000 ML 100 ML IV (19:39)
--- NOTE | 2021-02-08 20:09 | PM.HP ---
Providers/Chief Complaint Admitting Physician: Onofre Pineda Primary Care Provider: Felipa García DO Chief Complaint: Injury to Right Foot History of Present Illness Pleasant 60-year-old gentleman with history of DM 2, HTN, HLD, had stepped on a nail 6 days ago which pierced through his boot into his right foot, with swelling of his foot, has been for 3 days on cephalexin. Also has been having pain at the right knee. Chills at home. Had diffuse body aches. Here leukocytosis 10.7, currently afebrile, on 02/[address] with 10 mm suspected focal fluid collection with surrounding subcutaneous edema seen at lateral aspect of first metatarsal head in the subcutaneous fat suggestive of small abscess. Venous duplex with small amount of debris in the right CFV and SFV likely a small amount of thrombus. No occlusive DVT right lower extremity. No evidence of left lower extremity DVT. Blood cultures were collected, he was started on Zosyn, vancomycin. Review of Systems Const: Reports: chills and body aches; Denies: fever(s) Eyes: Denies: change in vision or eye redness ENMT: Denies: throat pain, oral sores or ear or mastoid pain Card: Denies: chest pain, edema, pre-syncope or dyspnea on exertion Resp: Denies: dyspnea, productive cough, change in phlegm color or hemoptysis GI: Denies: abdominal pain, nausea, vomiting, diarrhea, constipation, hematochezia or melena : Denies: flank pain, difficulty urinating, urinary frequency or hematuria Musc: Reports: extremity pain (R foot), extremity swelling (R foot) and joint swelling (R knee); Denies: back pain Skin/Breast: Reports: erythema (R foot); Denies: sores or new lesions Neuro: Denies: headache(s), numbness in extremities, weakness in extremities, dizziness, confusion or seizure-like activity Endo: Denies: polyuria or polydipsia Mahad/Lymph: Denies: easy bleeding or purpura All/Imm: Denies: urticaria, throat swelling or tongue swelling Medications/Allergies Home Medications Medication Instructions Recorded Confirmed Last Taken Type acetaminophen 325 mg tablet 325 mg PO QID PRN 06/11/19 02/08/21 12/15/19 History aspirin 81 mg tablet,delayed 81 mg PO DAILY 06/11/19 02/08/21 02/08/21 History release diabetic shoes #1 ea 11/30/19 02/08/21 Unknown Rx hydrocodone-acetaminophen 1 tab PO Q6H PRN #30 tab 12/16/19 02/08/21 Unknown Rx pregabalin 50 mg capsule 50 mg PO BID #180 cap 05/23/20 02/08/21 Unknown Rx fluticasone propionate 50 2 spray INTRANASAL DAILY 90 Days 09/21/20 02/08/21 02/08/21 Rx mcg/actuation nasal #16 g spray,suspension atorvastatin 20 mg tablet 20 mg PO DAILY #90 tab 11/20/20 02/08/21 02/08/21 Rx clotrimazole 1 % topical cream 1 applic TOPICAL BID 28 Days #30 g 11/20/20 02/08/21 Unknown Rx hydrochlorothiazide 12.5 mg tablet 12.5 mg PO DAILY #90 tab 11/20/20 02/08/21 02/08/21 Rx loratadine 10 mg tablet 10 mg PO DAILY 90 Days #90 tab 11/20/20 02/08/21 02/08/21 Rx losartan 50 mg tablet 50 mg PO DAILY 30 Days #90 tab 11/20/20 02/08/21 02/08/21 Rx glyburide 5 mg tablet 5 mg PO DAILY #90 tab 12/12/20 02/08/21 02/08/21 Rx metformin 500 mg tablet 500 mg PO BID 90 Days #180 tab 12/12/20 02/08/21 02/08/21 Rx canagliflozin 100 mg tablet 100 mg PO QAM #90 tab 12/27/20 02/08/21 02/08/21 Rx sitagliptin 100 mg tablet 100 mg PO DAILY #90 tab 12/27/20 02/08/21 02/08/21 Rx cephalexin 500 mg capsule 500 mg PO TID 7 Days #21 cap 02/05/21 02/08/21 02/08/21 Rx Allergies Allergy/AdvReac Type Severity Reaction Status Date / Time No Known Allergies Allergy Verified 02/08/21 14:37 PFSH Acute PFSH: Medical History (Updated 02/08/21 @ 20:26 by Onofre Pineda MD) Diabetic neuropathy Hyperlipidemia Hypertension Type 2 diabetes mellitus with diabetic polyneuropathy, without long-term current use of insulin Surgical History History of colon surgery History of elbow surgery right History of hip surgery right Status post left foot surgery Family History Other Cancer Diabetes Diabetes insipidus Heart disease Hypertension Stroke Social History Smoking and tobacco status: current every day smoker (chew) smokeless tobacco Smokeless tobacco user: chewing tobacco Smokeless tobacco details: 1 can every 2-3 days Alcohol intake: never Substance/Drug Use: never Lives independently: Yes Household members: significant other Marital status: Current occupational status: disabled History of recent travel: No Vitals/I&O/Wt Last Vital Signs Temp 98.1 F 02/08/21 14:37 Pulse 81 02/08/21 14:37 Resp 18 02/08/21 14:37 BP 172/82 02/08/21 14:37 Pulse Ox 99 02/08/21 14:37 Weight last 48 hrs Weight 97.522 kg Physical Exam Const: COMMON NORMALS: no acute distress and patient oriented x3 HENMT: COMMON NORMALS: oropharynx normal Neck/C-Spine: COMMON NORMALS: no JVD Resp: COMMON NORMALS: normal respiratory effort and clear to auscultation bilaterally AUSCULTATION: clear to auscultation bilaterally Cardio: COMMON NORMALS: no JVD, regular rhythm, S1 normal heart sound present, S2 normal heart sound present and No murmurs present (Cardio) RHYTHM: regular rhythm HEART SOUNDS: S1 normal heart sound present and S2 normal heart sound present GI: COMMON NORMALS: Normal to inspection, nondistended, normoactive bowel sounds present, Soft to palpation and non-tender PALPATION: Yes Soft to palpation Extremity: RIGHT LOWER EXTREMITY: Yes knee joint (peripatellar swelling, tenderness) Right knee: Yes ROM (pain anteriorly on ROM) and Yes foot & digits (swelling, redness) Neuro: COMMON NORMALS: patient oriented x3 and moves all extremities Skin: COMMON NORMALS: no rashes or lesions noted GENERAL SKIN EXAM: no rashes or lesions noted Data : 02/08/21 13:50 02/08/21 13:50 Micro: Microbiology 02/08/21 13:50 Blood Culture - Preliminary Blood SPECIMEN COLLECTED 02/08/21 13:50 Blood Culture - Preliminary Blood SPECIMEN COLLECTED A&P Assessment and plan (1) Diabetic foot infection: Recently fever, chills, body aches, currently afebrile, has been for 3 days on cephalexin. Persistent pain, swelling, redness of the right foot. Also experiencing some right knee swelling, pain. Continue vancomycin and Zosyn. Follow-up blood cultures. Foot abscess needs to be drained. Follow-up cultures. Status: Acute (2) Foot abscess: Appreciate surgical consultation. Tentative plan for abscess drainage in OR tomorrow. Stop heparin drip early in AM. Status: Acute (3) Swelling of right knee joint: Appreciate ER physician looking to try to see if arthrocentesis can be performed. Insufficient fluid to attempt arthrocentesis on evaluation manually and with bedside ultrasound. Soft tissue swelling noted. Discussed with patient and his daughter. Perhaps less likely septic arthritis, but discussed with them risks of septic arthritis, including joint destruction, seeding of infection and so we will request MRI evaluation to exclude the condition. Empiric antibiotics as above. Status: Acute (4) DVT (deep venous thrombosis): Small amount of debris in the right CFV and SFV likely a small amount of thrombus. Discussed heparin drip. Discontinue eyedotter in anticipation of surgical procedure. Status: Acute Additional A&P Information DM2: check A1c. At home on oral hypoglycemics only. SSI while in the hospital. HTN HLD Attestations Medical Necessity Statement*: Admission of over 2 midnights is going be needed for assessment of management of nonresolving diabetic foot infection with foot abscess, unresponsive to outpatient treatment, additional assessment of knee swelling and pain, DVT. Coding Level of Care Code Acute Excel Specialist for Chg Fwd Exam Comprehensive Diagnoses Diabetic foot infection E11.628; L08.9 Foot abscess L02.619 Swelling of right knee joint M25.461 DVT (deep venous thrombosis) I82.409
[2021-02-08 20:10] VITALS: BP 144/77; PULSE 78; RESP 18; O2SAT 98
[2021-02-08 20:46] LABS: Estmated Average Glucose 203; Hemoglobin A1C 8.7 % (4.0-6.0)
[2021-02-08 22:43] VITALS: BMI 32.3
[2021-02-08] MEDS: heparin drip 25,000 UNIT/500 ML PREMIX 26.2 UNIT IV (23:30)
[2021-02-08 23:47] LABS: Partial Thromboplastin Time 29.5 SECONDS (23.9-36.7)
[2021-02-08] MEDS: heparin 5,000 unit/mL INJ 1 mL IV (23:52)
[2021-02-09] MEDS: vancomycin 1,500 MG/300 ML PIGGYBACK 200 MG IV
--- NOTE | 2021-02-09 00:19 | PC.NURSE ---
PT RESTING WITHOUT COMPLAINTS. ED STAFF NOTIFIED THAT INPATIENT ROOM WAS NOT READY FOR PATIENT. THEY WILL NOTIFY ED STAFF WHEN ROOM IS READY.
--- NOTE | 2021-02-09 00:29 | PC.NURSE ---
Patient arrived to floor via stretcher, AAOx4, VSS, OOBT bathroom with minimal assistance. Heparin drip started per protocol/orders. Patient tolerating, minimal c/o pain at this time. NPO, room clutter free and call light in reach with safety socks on patient.
[2021-02-09] MEDS: piperacillin-tazobactam 3.375 GM in sodium chloride 0.9% (plus) 50 ML IV ×3 (02:29→18:13)
[2021-02-09 04:00] VITALS: BP 128/74; PULSE 80; RESP 17; TEMP 36.8; O2SAT 94
[2021-02-09] MEDS: sodium chloride 0.9% 1,000 ML 100 ML IV (04:32)
[2021-02-09 05:27] LABS: Basophils # 0.1 10^3/uL (0.0-0.1); Basophils % 0.9 %; Eosinophils # 0.4 10^3/uL (0.0-0.8); Eosinophils % 3.7 %; Hematocrit 43.2 % (42.0-52.0); Hemoglobin 13.8 g/dL (11.7-16.6); Lymphocytes # 2.9 10^3/uL (0.8-4.8); Lymphocytes % 27.9 %; Mean Corpuscular HGB Conc 31.9 g/dL (30.0-36.0); Mean Corpuscular Hemoglobin 29.1 pg (28.0-34.0); Mean Corpuscular Volume 91.1 fl (80-94); Mean Platelet Volume 9.3 fL (7.4-10.4); Monocytes % 9.3 %; Neutrophils % 56.9 %; Nucleated Red Blood Cells % 0 %; Platelet Count 253 10^3/cmm (130-400); Red Blood Count 4.74 10^6/uL (4.1-5.3); Red Cell Distribution Width 12.4 % (12.1-15.1); White Blood Count 10.2 10^3/uL (4.0-10.0)
[2021-02-09 05:39] LABS: Partial Thromboplastin Time 46.4 SECONDS (23.9-36.7)
[2021-02-09 05:48] LABS: Alanine Aminotransferase 35 U/L (0-41); Albumin Level 3.6 g/dL (3.5-5.2); Alkaline Phosphatase 136 IU/L (40-130); Aspartate Amino Transferase 27 U/L (0-40); Blood Urea Nitrogen 16 mg/dL (6-20); Carbon Dioxide 25 mmol/L (22-29); Chloride 99 mmol/L (98-107); Globulin 4.1 g/dL (1.3-4.6); Glomerular Filtration Rate 56.5 mL/min (90-130); Glucose 181 mg/dL (65-115); Osmolality Calculated 292 mOsm/kg (285-295); Sodium 138 mmol/L (136-145); Total Bilirubin 0.7 mg/dL (0.15-1.2); Total Protein 7.7 g/dL (6.6-8.7)
--- NOTE | 2021-02-09 05:49 | P.CONIM_ITS ---
Providers/Reason For Consult Consulting Physician/Specialty*: Cm Spence MD Reason for Consult*: Diabetic foot infection Requesting Physician: Dr. Madrigal Attending Physician: Onofre Pineda Primary Care Provider: Felipa García DO History of Present Illness History of Present Illness Chief Complaint: Stepped on a nail last Thursday History of present illness: Mr Baljit Goldstein is a pleasant 60 year old male with history of diabetes mellitus type 2, hypertension, hyperlipidemia. Patient reports that he stepped on a nail that pierced his boot and went through his right foot last Thursday. Patient was placed on cephalexin for 3 days and as he started to have chills and has been having pain of the right knee. Decided to come to the ER for further evaluation. Blood work showed WBC count of 10.7. Venous duplex CONCLUSIONS Small amount of debris in the right CFV and SFV likely a small amount of thrombus. No occlusive DVT RLE No evidence of left lower extremity DVT. CT scan of the right lower extremity with contrast shows 10 mm suspected focal fluid collection with surrounding subcutaneous edema seen at lateral aspect of the 1st metatarsal head in the subcutaneous fat suggestive of a small abscess, best seen series 2, image 118. Orthopedic(Ankle and foot surgery) service was consulted for evaluating the patient and the consult was subsequently deferred to general surgery for unclear reason. There was a concern about right knee effusion and Dr. Vee emergency department did not find enough fluid to be aspirated.. Patient was seen and evaluated today Review of Systems General: Reports: 10 or more systems reviewed and unremarkable except in HPI and below Meds/Allergies Home Medications and Allergies Home Medications Medication Instructions Recorded Confirmed Last Taken Type acetaminophen 325 mg tablet 325 mg PO QID PRN 06/11/19 02/08/21 12/15/19 History aspirin 81 mg tablet,delayed 81 mg PO DAILY 06/11/19 02/08/21 02/08/21 History release diabetic shoes #1 ea 11/30/19 02/08/21 Unknown Rx hydrocodone-acetaminophen 1 tab PO Q6H PRN #30 tab 12/16/19 02/08/21 Unknown Rx pregabalin 50 mg capsule 50 mg PO BID #180 cap 05/23/20 02/08/21 Unknown Rx fluticasone propionate 50 2 spray INTRANASAL DAILY 90 Days 09/21/20 02/08/21 02/08/21 Rx mcg/actuation nasal #16 g spray,suspension atorvastatin 20 mg tablet 20 mg PO DAILY #90 tab 11/20/20 02/08/21 02/08/21 Rx clotrimazole 1 % topical cream 1 applic TOPICAL BID 28 Days #30 g 11/20/20 02/08/21 Unknown Rx hydrochlorothiazide 12.5 mg tablet 12.5 mg PO DAILY #90 tab 11/20/20 02/08/21 02/08/21 Rx loratadine 10 mg tablet 10 mg PO DAILY 90 Days #90 tab 11/20/20 02/08/21 02/08/21 Rx losartan 50 mg tablet 50 mg PO DAILY 30 Days #90 tab 11/20/20 02/08/21 02/08/21 Rx glyburide 5 mg tablet 5 mg PO DAILY #90 tab 12/12/20 02/08/21 02/08/21 Rx metformin 500 mg tablet 500 mg PO BID 90 Days #180 tab 12/12/20 02/08/21 02/08/21 Rx canagliflozin 100 mg tablet 100 mg PO QAM #90 tab 12/27/20 02/08/21 02/08/21 Rx sitagliptin 100 mg tablet 100 mg PO DAILY #90 tab 12/27/20 02/08/21 02/08/21 Rx cephalexin 500 mg capsule 500 mg PO TID 7 Days #21 cap 02/05/21 02/08/21 02/08/21 Rx Allergies Allergy/AdvReac Type Severity Reaction Status Date / Time No Known Allergies Allergy Verified 02/09/21 06:32 Current Medications Current Medications Generic Name Dose Route Start Last Admin Trade Name Rayq PRN Reason Stop Dose Admin Hydrocodone Bitart/Acetaminophen 1 tab 02/08/21 19:11 02/08/21 19:38 Hydrocodone-Acetaminophen 5-325 Mg Tablet PO 1 tab Q4H PRN Administration MODERATE TO SEVERE PAIN Heparin Sodium (Porcine) 0 unit 02/08/21 20:37 02/08/21 23:52 Heparin 5,000 Unit/Ml Inj 1 Ml IV 4,700 unit PRN PRN Administration Heparin weight-base protocol Protocol Sodium Chloride 1,000 mls @ 100 mls/hr 02/08/21 19:11 02/09/21 04:32 Sodium Chloride 0.9% IV 100 mls/hr .Q10H MARIE Administration Piperacillin Sod/Tazobactam 50 mls @ 12.5 mls/hr 02/09/21 02:30 02/09/21 02:29 Sod 3.375 gm/ Sodium Chloride IV 12.5 mls/hr Q8H MARIE Administration Protocol Vancomycin/PEG/NADA/Lysine/Water 1,500 mg in 300 mls @ 200 mls/hr 02/09/21 01:00 02/09/21 01:38 Vancocin IV Infused Q12H MARIE Infusion Insulin Human Lispro 0 unit 02/08/21 21:00 02/08/21 22:56 Insulin Lispro 100 Unit/1 Ml SUBCUT Not Given WM&BEDTIME MARIE Protocol PFSH Acute PFSH: Medical History (Updated 02/09/21 @ 11:50 by Gio Dietrich DO) Diabetic neuropathy Hyperlipidemia Hypertension Type 2 diabetes mellitus with diabetic polyneuropathy, without long-term current use of insulin Surgical History History of colon surgery History of elbow surgery right History of hip surgery right Status post left foot surgery Family History Other Cancer Diabetes Diabetes insipidus Heart disease Hypertension Stroke Social History Smoking and tobacco status: current every day smoker (chew) smokeless tobacco Smokeless tobacco user: chewing tobacco Smokeless tobacco details: 1 can every 2-3 days Alcohol intake: never Lives independently: Yes Household members: significant other Marital status: Current occupational status: disabled History of recent travel: No Vitals/I&O/Wt Last Vital Signs Temp 98.1 F 02/08/21 14:37 Pulse 78 02/08/21 20:10 Resp 18 02/08/21 20:10 BP 144/77 02/08/21 20:10 Pulse Ox 98 02/08/21 20:10 02/08/21 02/08/21 02/09/21 14:59 22:59 06:59 Intake Total 300 / 300 1428.333 / 1728.333 Balance 300 / 300 1428.333 / 1728.333 Weight last 48 hrs Weight 206 lb 5 oz Weight 215 lb Physical Exam Const: COMMON NORMALS: no acute distress and patient oriented x3 GENERAL APPEARANCE: cooperative ORIENTATION/CONSCIOUSNESS: Yes awake, Yes oriented to person, Yes oriented to place and Yes oriented to time HENMT: COMMON NORMALS: normocephalic HEAD & SCALP: normocephalic Eye: COMMON NORMALS: Equal, round and reactive pupils present and no scleral icterus PUPIL: Yes Equal, round and reactive pupils present Lymph: LYMPHATIC: no lymphadenopathy noted Chest: COMMONS NORMALS: normal inspection of the chest Resp: COMMON NORMALS: normal respiratory effort and clear to auscultation bilaterally AUSCULTATION: clear to auscultation bilaterally Cardio: COMMON NORMALS: S1 normal heart sound present and S2 normal heart sound present; negative for No murmurs present (Cardio) HEART SOUNDS: S1 normal heart sound present and S2 normal heart sound present GI: COMMON NORMALS: Soft to palpation; negative for No hepatosplenomegaly present INSPECTION: Yes normal to inspec tion PALPATION: Yes Soft to palpation, No Firmness to palpation present (GI), No Tenderness to palpation present (GI), No Guarding due to palpation present (GI), No Rigid due to palpation and No No hepatosplenomegaly present Neuro: COMMON NORMALS: patient oriented x3 SENSORIUM/ORIENTATION: Yes oriented to person, Yes oriented to place and Yes oriented to time Psych: COMMON NORMALS: mental status grossly normal Skin: SKIN IMAGES (MALE): 1. Presence of cellulitic changes occupying the distal dorsal aspect of the right foot and according to the patient that has fad ed as it was all the way to his ankle. There is no evidence of fluctuation at the plantar aspect of the base of the right big toe. No tenderness is appreciated. Intact vascular examination on bilateral lower extremities. Data Micro: Micro: Microbiology 02/08/21 13:50 Blood Culture - Pr eliminary Blood SPECIMEN [facility] 02/08/21 13:50 Blood Culture - Pr eliminary Blood SPECIMEN [facility] A&P Assessment and plan (1) Diabetic foot infection: After thorough history, physical examination and reviewing the chart and images of the CT scan with my personal interpretation. I do not see a distinct fluid collection to be drained. And clinically the patient does show improvement with regard to his cellulitis. I would recommend at this point to continue antibiotics and emphasis on nonweightbearing right forefoot by obtaining [employer] shoes. We will plan to keep the patient n.p.o. after midnight tonight and will monitor the patient clinically for potential surgical intervention tomorrow if and when indicated. Diabetes management and other medical commodities per hospitalist service Assurance and education All questions have been answered and all concerns have been addressed to patient's satisfaction. Thank you for consulting general surgery to participate taking care Mr. Goldstein Status: Acute Consult Attestations Medical Necessity Statement: Per admitting service Time Spent in Patient Care: (>than 50% of time spent in counselling and/or direct pt care on unit) . 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
[2021-02-09] MEDS: heparin 5,000 unit/mL INJ 1 mL IV ×2 (06:17→21:43)
[2021-02-09 06:24] LABS: Glucose Point of Care 144 mg/dL (70-110)
[2021-02-09 07:58] VITALS: BP 135/69; PULSE 80; RESP 18; TEMP 36.7; O2SAT 91
[2021-02-09] MEDS: atorvastatin 40 mg Tablet 20 MG PO (09:42)
[2021-02-09] MEDS: clotrimazole 1% cream 30 gm 1 APPLIC TOPICAL ×2 (10:19→18:12)
[2021-02-09 11:00] LABS: Glucose Point of Care 197 mg/dL (70-110)
[2021-02-09 11:31] VITALS: BP 126/73; PULSE 77; RESP 16; TEMP 36.6; O2SAT 94
[2021-02-09] MEDS: linezolid 600 mg Tablet PO (13:05)
[2021-02-09 15:22] VITALS: BP 131/74; PULSE 78; RESP 16; TEMP 36.8; O2SAT 94
[2021-02-09 16:54] LABS: Glucose Point of Care 226 mg/dL (70-110)
[2021-02-09 20:00] VITALS: BP 157/79; PULSE 81; RESP 17; TEMP 36.6; O2SAT 95
[2021-02-09 20:45] LABS: Glucose Point of Care 213 mg/dL (70-110)
--- NOTE | 2021-02-09 21:22 | PM.PN ---
Subjective Subjective: Interval history: Swelling coming down on the right foot, right knee is feeling much better as well tenderness resolving, he shows me how he can bend it without problem. Vitals/I&O/Wt Last Vital Signs Temp 98 F 02/09/21 20:00 Pulse 81 02/09/21 20:00 Resp 17 02/09/21 20:00 BP 157/79 02/09/21 20:00 Pulse Ox 95 02/09/21 20:00 02/09/21 02/09/21 02/09/21 06:59 14:59 22:59 Intake Total 1661.296 / 1961.296 290 / 290 1240 / 1530 Balance 1661.296 / 1961.296 290 / 290 1240 / 1530 Weight last 48 hrs Weight 93.582 kg Weight 97.522 kg Physical Exam Narrative: EXAM NARRATIVE: Daughter at bedside. Const: COMMON NORMALS: no acute distress and patient oriented x3 HENMT: COMMON NORMALS: oropharynx normal Neck/C-Spine: COMMON NORMALS: no JVD Resp: COMMON NORMALS: normal respiratory effort and clear to auscultation bilaterally AUSCULTATION: clear to auscultation bilaterally Cardio: COMMON NORMALS: no JVD, regular rhythm, S1 normal heart sound present, S2 normal heart sound present and No murmurs present (Cardio) RHYTHM: regular rhythm HEART SOUNDS: S1 normal heart sound present and S2 normal heart sound present GI: COMMON NORMALS: Normal to inspection, nondistended, normoactive bowel sounds present, Soft to palpation and non-tender PALPATION: Yes Soft to palpation Extremity: RIGHT LOWER EXTREMITY: Yes knee joint (No swelling erythema around the knee, around the patella swelling decreasin) and Yes foot & digits (Swelling, redness subsiding) OTHER: Whitish blister appearing area on medial ball of foot, perforation spot on plantar ball of foot Neuro: COMMON NORMALS: patient oriented x3 and moves all extremities Skin: COMMON NORMALS: no rashes or lesions noted GENERAL SKIN EXAM: no rashes or lesions noted Data : 02/09/21 05:00 02/09/21 05:00 Micro: Microbiology 02/08/21 13:50 Blood Culture - Preliminary Blood NEGATIVE TO DATE 02/08/21 13:50 Blood Culture - Preliminary Blood NEGATIVE TO DATE A&P Assessment and plan (1) Diabetic foot infection: Appreciate surgery recommendations. Surgical procedure deferred for now. Heparin drip restarted. Will need discontinuation in case requiring procedure tomorrow. Continue IV antibiotics. Quite impressive swelling, erythema on presentation. Appears to be responding well. No signs of sepsis. Recently fever, chills, body aches, currently afebrile, has been for 3 days on cephalexin. Persistent pain, swelling, redness of the right foot. Also experiencing some right knee swelling, pain. Continue vancomycin and Zosyn. Follow-up blood cultures. Did not respond to outpatient therapy with cephalexin. Status: Acute (2) Foot abscess: As above. Status: Acute (3) Swelling of right knee joint: Swelling around the knee is decreasing. Swelling around the knee, lower leg may also be related to possible DVT noted on ultrasound. He is bending his knee today. Improving swelling, some residual swelling anteriorly, no swelling surrounding the knee joint itself. MRI of the knee ordered. Status: Acute (4) DVT (deep venous thrombosis): Small amount of debris in the right CFV and SFV likely a small amount of thrombus. Heparin drip resumed. Will be discontinued in case of surgical procedure. Discussed at discharge home with transition to oral anticoagulation. Likely will not require lifelong anticoagulation. Status: Acute Additional A&P Information DM2: A1c 8.7. At home on oral hypoglycemics only. SSI while in the hospital. HTN HLD Attestations Medical Necessity Statement*: Continue admission for assessment and management of diabetic foot infection with IV antibiotics unresponsive to outpatient treatment. Surgical reassessment with consideration of fluid collection drainage. With initiated anticoagulation for DVT. Coding Level of Care Code Acute Tray Drier for [facility] [place] Fwd Exam Comprehensive Diagnoses Diabetic foot infection E11.628; L08.9 Foot abscess L02.619 Swelling of right knee joint M25.461 DVT (deep venous thrombosis) I82.409
[2021-02-09] MEDS: heparin drip 25,000 UNIT/500 ML PREMIX 26.2 UNIT IV (21:47)
[2021-02-10] VITALS: BP 143/72; PULSE 84; RESP 17; TEMP 37.4; O2SAT 96
[2021-02-10] MEDS: linezolid 600 mg Tablet PO ×3 (01:02→23:45)
[2021-02-10] MEDS: piperacillin-tazobactam 3.375 GM in sodium chloride 0.9% (plus) 50 ML IV ×3 (01:30→17:45)
[2021-02-10 04:00] VITALS: BP 127/78; PULSE 77; RESP 17; TEMP 36.6; O2SAT 95
[2021-02-10 04:19] LABS: Basophils # 0.1 10^3/uL (0.0-0.1); Basophils % 0.8 %; Eosinophils # 0.5 10^3/uL (0.0-0.8); Eosinophils % 4.3 %; Hematocrit 41.6 % (42.0-52.0); Hemoglobin 13.6 g/dL (11.7-16.6); Lymphocytes # 2.6 10^3/uL (0.8-4.8); Lymphocytes % 23.7 %; Mean Corpuscular HGB Conc 32.7 g/dL (30.0-36.0); Mean Corpuscular Hemoglobin 29.2 pg (28.0-34.0); Mean Corpuscular Volume 89.5 fl (80-94); Mean Platelet Volume 9.1 fL (7.4-10.4); Monocytes # 1.1 10^3/uL (0.2-0.9); Monocytes % 9.6 %; Neutrophils # 6.64 10^3/uL (1.8-7.7); Neutrophils % 60.4 %; Nucleated Red Blood Cells % 0 %; Platelet Count 244 10^3/cmm (130-400); Red Blood Count 4.65 10^6/uL (4.1-5.3); Red Cell Distribution Width 12.3 % (12.1-15.1)
[2021-02-10 04:49] LABS: Alanine Aminotransferase 34 U/L (0-41); Albumin Level 3.4 g/dL (3.5-5.2); Alkaline Phosphatase 117 IU/L (40-130); Anion Gap 17.1 (5-19); Aspartate Amino Transferase 27 U/L (0-40); Blood Urea Nitrogen 17 mg/dL (6-20); Calcium 8.9 mg/dL (8.5-10.5); Carbon Dioxide 21 mmol/L (22-29); Chloride 102 mmol/L (98-107); Globulin 4.3 g/dL (1.3-4.6); Glomerular Filtration Rate 76.5 mL/min (90-130); Glucose 137 mg/dL (65-115); Osmolality Calculated 286 mOsm/kg (285-295); Potassium 4.1 mmol/L (3.5-5.1); Sodium 136 mmol/L (136-145); Total Bilirubin 0.5 mg/dL (0.15-1.2); Total Protein 7.7 g/dL (6.6-8.7)
[2021-02-10] MEDS: heparin 5,000 unit/mL INJ 1 mL IV ×2 (04:53→11:43)
[2021-02-10 06:48] LABS: Glucose Point of Care 138 mg/dL (70-110)
[2021-02-10 07:28] VITALS: BP 135/77; PULSE 76; RESP 16; TEMP 36.8; O2SAT 94
--- NOTE | 2021-02-10 07:33 | USR_ITS ---
PROCEDURE INFORMATION: Exam: US Unlisted Ultrasound Procedure Exam date and time: 02/10/2021 7:33 AM Age: 60 years old Clinical indication: Pain; Pain: RT anterior foot; Additional info: Right forefoot area to rule out fluid collection TECHNIQUE: Imaging protocol: Unlisted ultrasound procedure (eg, diagnostic, interventional). COMPARISON: No relevant prior studies available. FINDINGS: Procedural imaging: Twelve selective ultrasound images including Doppler assessment within the labeled area of symptomatology. Suggestion of superficial soft tissue edema. Technologist suggested abscess although definition of definable fluid collection is not ascertained on the basis of static images submitted with limitation by shadowing bone. US/US soft tissue/extremity [id number] IMPRESSION: 1. Superficial soft tissue edema or cellulitis. 2. Significant limitation of spatial resolution by only static image review. Presumably shadowing bone structures limit accuracy of assessment of delineation of adjacent soft tissues. The imaging modality of choice would include MRI with gadolinium. Radiation Dose CTDIVOL = (mGy): DLP = (mGy-cm)
--- NOTE | 2021-02-10 07:34 | P.PN_ITS ---
Subjective Subjective: Interval history: Patient overall feels well. No acute events overnight Medications: Reviewed: Yes Vitals/I&O/Wt Last Vital Signs Temp 98.3 F 02/10/21 07:28 Pulse 76 02/10/21 07:28 Resp 16 02/10/21 07:28 BP 135/77 02/10/21 07:28 Pulse Ox 94 02/10/21 07:28 02/09/21 02/10/21 02/10/21 22:59 06:59 14:59 Intake Total 1290 / 1580 237.33 / 1817.33 Balance 1290 / 1580 237.33 / 1817.33 Weight last 48 hrs Weight 206 lb 5 oz Weight 215 lb Physical Exam Narrative: EXAM NARRATIVE: Patient is conscious alert oriented X3 BMI 32.3 Right forefoot area showing cellulitic changes slightly better., No evidence of fluctuation at this point. Data : 02/10/21 04:11 02/10/21 04:11 Micro: Microbiology 02/08/21 13:50 Blood Culture - Preliminary Blood NEGATIVE TO DATE 02/08/21 13:50 Blood Culture - Preliminary Blood NEGATIVE TO DATE A&P Assessment and plan (1) Diabetic foot infection: Clinically I do not appreciate any abscess formation yet. I will obtain an ultrasound soft tissues of the right forefoot to rule out fluid collection. Meanwhile I will keep the patient n.p.o. for now until we have the ultrasound back Diabetes management and other medical commodities per hospitalist service Assurance and education All questions have been answered and all concerns have been addressed to patient's satisfaction. Thank you for consulting general surgery to participate taking care Mr. Goldstein Status: Acute Attestations Medical Necessity Statement*: Per admitting service Time Spent in Patient Care: (>than 50% of time spent in counselling and/or direct pt care on unit) . 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
[2021-02-10] MEDS: atorvastatin 40 mg Tablet 20 MG PO (08:44)
[2021-02-10] MEDS: clotrimazole 1% cream 30 gm 1 APPLIC TOPICAL ×2 (08:45→17:46)
[2021-02-10 10:45] LABS: Glucose Point of Care 176 mg/dL (70-110)
[2021-02-10 11:27] LABS: Partial Thromboplastin Time 34.9 SECONDS (23.9-36.7)
[2021-02-10] MEDS: heparin drip 25,000 UNIT/500 ML PREMIX 28.08 UNIT IV (11:43)
[2021-02-10 11:59] VITALS: BP 130/82; PULSE 75; RESP 16; TEMP 36.8; O2SAT 95
[2021-02-10 16:00] VITALS: BP 125/80; PULSE 75; RESP 16; TEMP 36.6; O2SAT 93
--- NOTE | 2021-02-10 16:35 | P.PN_ITS ---
Subjective Subjective: Interval history: Swelling continues to improve in the right foot. Some persistent erythema in the medial distal foot, erythema and swelling of the first digit. Reports some sore spots in the right knee. Vitals/I&O/Wt Last Vital Signs Temp 97.9 F 02/10/21 16:00 Pulse 75 02/10/21 16:00 Resp 16 02/10/21 16:00 BP 125/80 02/10/21 16:00 Pulse Ox 93 02/10/21 16:00 02/10/21 02/10/21 02/10/21 06:59 14:59 22:59 Intake Total 237.33 / 1817.33 430.476 / 430.476 50 / 480.476 Balance 237.33 / 1817.33 430.476 / 430.476 50 / 480.476 Weight last 48 hrs Weight 93.582 kg Physical Exam Const: COMMON NORMALS: no acute distress and patient oriented x3 HENMT: COMMON NORMALS: oropharynx normal Neck/C-Spine: COMMON NORMALS: no JVD Resp: COMMON NORMALS: normal respiratory effort and clear to auscultation bilaterally AUSCULTATION: clear to auscultation bilaterally Cardio: COMMON NORMALS: no JVD, regular rhythm, S1 normal heart sound present, S2 normal heart sound present and No murmurs present (Cardio) RHYTHM: regular rhythm HEART SOUNDS: S1 normal heart sound present and S2 normal heart sound present GI: COMMON NORMALS: Normal to inspection, nondistended, normoactive bowel sounds present, Soft to palpation and non-tender PALPATION: Yes Soft to pa lpation Extremity: RIGHT LOWER EXTREMITY: Yes knee joint (No erythema, minimal peripatellar swelling subsiding. Bends the knee.) OTHER: Improving edema of foot, perforation spot on plantar ball of foot. No drainage. Neuro: COMMON NORMALS: patient oriented x3 and moves all extremities Skin: COMMON NORMALS: no rashes or lesions noted GENERAL SKIN EXAM: no rashes or lesions noted Data : 02/10/21 04:11 02/10/21 04:11 Micro: Microbiology 02/08/21 13:50 Blood Culture - Preliminary Blood NEGATIVE TO DATE 02/08/21 13:50 Blood Culture - Preliminary Blood NEGATIVE TO DATE A&P Assessment and plan (1) Diabetic foot infection: Appreciate surgery recommendations. Additional assessment performed today with ultrasonography without finding of fluid collection. Agree with close evaluation with contrast MRI study which is ordered. Further recommendations to come based on that. Continue IV antibiotics. Quite impressive swelling and erythema on presentation which is improving. Did not respond to outpatient treatment with cephalexin. Continue vancomycin and Zosyn. Follow-up blood cultures. Negative so far. Status: Acute (2) Foot abscess: 1cm right foot fluid collection noted on initial CT. Followed up with ultrasound. Currently pending additional assessment by MRI. Status: Acute (3) Swelling of right knee joint: Swelling around the knee is resolving. He reports some sore spots in the knee . Swelling around the knee, lower leg may also be related to possible DVT noted on ultrasound. He is bending his knee. Improving swelling, some residual swelling anteriorly, no swelling surrounding the knee joint itself. MRI of the knee ordered. Status: Acute (4) DVT (deep venous thrombosis): Small amount of debris in the right CFV and SFV likely a small amount of thrombus. Heparin drip. Stop in case of surgical procedure. Discussed at discharge home to transition to oral anticoagulation. Likely will not require lifelong anticoagulation. Status: Acute Additional A&P Information DM2: A1c 8.7. At home on oral hypoglycemics only. SSI while in the hospital. Given worsening A1c on multiple hypoglycemic agents, may benefit from transitioning to insulin at home. HTN HLD Attestations Medical Necessity Statement*: Continue admission for IV antibiotics for treatment of persistent right foot infection in setting of diabetes, with puncture wound, additional assessment for deeper infection or bone infection, following lack of response to outpatient treatment. 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
[2021-02-10 17:05] LABS: Glucose Point of Care 106 mg/dL (70-110)
[2021-02-10 18:14] LABS: Partial Thromboplastin Time 81.4 SECONDS (23.9-36.7)
[2021-02-10 20:00] VITALS: BP 145/83; PULSE 74; RESP 17; TEMP 36.6; O2SAT 94
[2021-02-10 21:03] LABS: Glucose Point of Care 166 mg/dL (70-110)
[2021-02-11] VITALS (7 sets, daily range): BP systolic 138–163; BP diastolic 73–95; PULSE 62–73; RESP 16–17; TEMP 36.3–36.9; O2SAT 94–97
[2021-02-11 01:42] LABS: Partial Thromboplastin Time 71.4 SECONDS (23.9-36.7)
[2021-02-11] MEDS: piperacillin-tazobactam 3.375 GM in sodium chloride 0.9% (plus) 50 ML IV ×3 (01:59→18:56)
[2021-02-11] MEDS: heparin drip 25,000 UNIT/500 ML PREMIX 32 UNIT IV (01:59)
[2021-02-11 05:37] LABS: Basophils # 0.1 10^3/uL (0.0-0.1); Eosinophils # 0.5 10^3/uL (0.0-0.8); Eosinophils % 4.2 %; Hematocrit 42.6 % (42.0-52.0); Hemoglobin 14.2 g/dL (11.7-16.6); Lymphocytes # 2.6 10^3/uL (0.8-4.8); Lymphocytes % 24.1 %; Mean Corpuscular HGB Conc 33.3 g/dL (30.0-36.0); Mean Corpuscular Volume 87.1 fl (80-94); Mean Platelet Volume 9.2 fL (7.4-10.4); Monocytes # 0.9 10^3/uL (0.2-0.9); Neutrophils # 6.59 10^3/uL (1.8-7.7); Neutrophils % 60.5 %; Nucleated Red Blood Cells % 0 %; Platelet Count 302 10^3/cmm (130-400); Red Blood Count 4.89 10^6/uL (4.1-5.3); Red Cell Distribution Width 12.1 % (12.1-15.1); White Blood Count 10.9 10^3/uL (4.0-10.0)
[2021-02-11 06:07] LABS: Alanine Aminotransferase 36 U/L (0-41); Albumin Level 3.7 g/dL (3.5-5.2); Alkaline Phosphatase 131 IU/L (40-130); Aspartate Amino Transferase 28 U/L (0-40); Blood Urea Nitrogen 13 mg/dL (6-20); Calcium 9.5 mg/dL (8.5-10.5); Carbon Dioxide 24 mmol/L (22-29); Chloride 101 mmol/L (98-107); Globulin 4.9 g/dL (1.3-4.6); Glomerular Filtration Rate 56.5 mL/min (90-130); Glucose 155 mg/dL (65-115); Osmolality Calculated 285 mOsm/kg (285-295); Sodium 136 mmol/L (136-145); Total Bilirubin 0.6 mg/dL (0.15-1.2); Total Protein 8.6 g/dL (6.6-8.7)
[2021-02-11 06:11] LABS: Anion Gap 15.3 (5-19); Potassium 4.3 mmol/L (3.5-5.1)
[2021-02-11 06:28] LABS: Glucose Point of Care 176 mg/dL (70-110)
[2021-02-11 08:19] LABS: Partial Thromboplastin Time 70.3 SECONDS (23.9-36.7)
--- NOTE | 2021-02-11 08:22 | P.PN_ITS ---
Subjective Subjective: Interval history: Patient overall feels better, pending MRI of the right foot. Medications: Reviewed: Yes Vitals/I&O/Wt Last Vital Signs Temp 98.4 F 02/11/21 08:00 Pulse 72 02/11/21 08:00 Resp 16 02/11/21 08:00 BP 146/79 02/11/21 08:00 Pulse Ox 95 02/11/21 08:00 02/10/21 02/11/21 02/11/21 22:59 06:59 14:59 Intake Total 100 / 530.476 450.608 / 981.084 Balance 100 / 530.476 450.608 / 981.084 Physical Exam Narrative: EXAM NARRATIVE: Patient is conscious alert oriented X3 BMI 32.3 Right forefoot area showing improvement of cellulitic changes, which appears to be receding. No evidence of fluctuation at this point or abscess formation clinically detected. Data : 02/11/21 05:05 02/11/21 05:05 A&P Assessment and plan (1) Diabetic foot infection: We will follow on the MRI results Diabetes management and other medical commodities per hospitalist service Assurance and education All questions have been answered and all concerns have been addressed to patient's satisfaction. Thank you for consulting general surgery to participate taking care Mr. Elena schultz Status: Acute Attestations Medical Necessity Statement*: Per admitting service Time Spent in Patient Care: (>than 50% of time spent in counselling and/or direct pt care on unit) . 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
[2021-02-11] MEDS: clotrimazole 1% cream 30 gm 1 APPLIC TOPICAL ×2 (09:38→19:03)
[2021-02-11] MEDS: atorvastatin 40 mg Tablet 20 MG PO (09:38)
--- NOTE | 2021-02-11 11:00 | MRR_ITS ---
PROCEDURE INFORMATION: Exam: MR Right Lower Extremity Other Than Joint Without and With Contrast; Foot Exam date and time: 02/11/2021 11:00 AM Age: 60 years old Clinical indication: Injury or trauma; Other: Stepped on nail; Wound; Right; Without foreign body; Injury details: History--patient recently stepped on a nail and punctured his foot/ history of diabetes; Additional info: Right diabetic foot infection, history of trauma patient stepped on a nail at the base of TECHNIQUE: Imaging protocol: MR of the Right lower extremity without and with intravenous contrast. Exam focused on the foot. Contrast material: MULTIHANCE; Contrast volume: 20 ml; Contrast route: INTRAVENOUS (IV); COMPARISON: CT foot RT w con [id number] 02/08/2021 5:13 PM FINDINGS: Limitations: The study is limited by patient motion artifact, particularly on the postcontrast images. Bones and cartilage: Bone marrow signal is within normal limits. No bone marrow edema noted. No abnormal bone marrow enhancement demonstrated on the postcontrast images. There are mild degenerative changes of the 1st tarsometatarsal joint. No joint dislocation noted. Soft tissues: There is soft tissue edema noted in the medial aspect of the plantar surface of the forefoot. No focal fluid collection identified. Plantar fascia: Unremarkable as visualized. MR/MR foot RT wo/w con [id number] IMPRESSION: 1. The study is limited by patient motion artifact, particularly on the postcontrast images. 2. There is soft tissue edema noted in the medial aspect of the plantar surface of the forefoot. No focal fluid collection identified. Findings are consistent with cellulitis. The small collection seen on CT study of 02/08/2021 is not identified currently. 3. No evidence of osteomyelitis. Radiation Dose CTDIVOL = (mGy): DLP = (mGy-cm)
[2021-02-11] MEDS: aspirin 81 mg EC Tablet PO (12:09)
[2021-02-11] MEDS: linezolid 600 mg Tablet PO (12:09)
[2021-02-11 12:13] LABS: Glucose Point of Care 154 mg/dL (70-110)
[2021-02-11] MEDS: insulin lispro 100 unit/1 mL SUBCUT (12:20)
[2021-02-11 12:43] LABS: Procalcitonin 0.16 ng/mL (0-0.5)
[2021-02-11 12:44] LABS: Thyroid Stimulating Hormone 1.57 uIU/mL (0.27-4.20)
[2021-02-11 12:55] LABS: Iron 34 ug/dL (59-158); Percent Saturation 14.2 % (20-50); Total Iron Binding Capacity 238 mcg/dl; Unsaturated Iron Binding 204 ug/dL (112-347)
[2021-02-11] MEDS: gadobenate dimeglumine 20 mL vial IV (15:12)
--- NOTE | 2021-02-11 15:53 | PM.PN ---
Subjective Subjective: Interval history: Hospital course, labs appreciated. On examination sitting up in bed. Denies any nausea vomiting, headache. States pain is better in the foot. Asking when can go home. Has remained afebrile and hemodynamically stable. Medications: Reviewed: Yes Vitals/I&O/Wt Last Vital Signs Temp 97.3 F L 02/11/21 12:00 Pulse 62 02/11/21 12:00 Resp 16 02/11/21 12:00 BP 163/95 02/11/21 12:00 Pulse Ox 97 02/11/21 12:00 02/11/21 02/11/21 02/11/21 06:59 14:59 22:59 Intake Total 450.608 / 981.084 50 / 50 Balance 450.608 / 981.084 50 / 50 Physical Exam Narrative: EXAM NARRATIVE: General: No acute distress, AO x3 HEENT: PERRLA, pupils bilaterally equal and reactive Chest: Normal vesicular breath sounds, no added sounds, equal good air entry bilaterally CVS: S1-S2 regular, no murmurs, no tachycardia, no gallops, no rubs Abdomen: Soft, nontender, no organomegaly, bowel sounds present Neuro: No focal deficits, no facial deformity, AO x3, power 5/5 in all limbs Extremity: OTHER: Improving edema of foot, perforation spot on plantar ball of foot. No drainage. Data : 02/11/21 05:05 02/11/21 05:05 A&P Assessment and plan (1) Diabetic foot infection: Appreciate surgery recommendations. Additional assessment performed today with ultrasonography without finding of fluid collection. Agree with close evaluation with contrast MRI study which is ordered. Further recommendations to come based on that. Continue IV antibiotics. Quite impressive swelling and erythema on presentation which is improving. Did not respond to outpatient treatment with cephalexin. Continue vancomycin and Zosyn. Follow-up blood cultures. Negative so far. Status: Acute (2) Foot abscess: 1cm right foot fluid collection noted on initial CT. Followed up with ultrasound. Currently pending additional assessment by MRI. Status: Acute (3) Swelling of right knee joint: Swelling around the knee is resolving. He reports some sore spots in the knee . Swelling around the knee, lower leg may also be related to possible DVT noted on ultrasound. He is bending his knee. Improving swelling, some residual swelling anteriorly, no swelling surrounding the knee joint itself. MRI of the knee ordered. Status: Acute (4) DVT (deep venous thrombosis): Small amount of debris in the right CFV and SFV likely a small amount of thrombus. Heparin drip. Stop in case of surgical procedure. Discussed at discharge home to transition to oral anticoagulation. Likely will not require lifelong anticoagulation. Status: Acute Additional A&P Information DM2: A1c 8.7. At home on oral hypoglycemics only. SSI while in the hospital. Given worsening A1c on multiple hypoglycemic agents, may benefit from transitioning to insulin at home. HTN HLD Plan for the day: MRI foot to rule out osteomyelitis. Continue current IV antibiotics with Zosyn and linezolid. Check MRSA swab. Blood cultures so far negative. Depending on result of MRI we will plan for oral antibiotics as an outpatient. Start on home dose of Lyrica, aspirin and losartan. Goal blood pressure less than 140/90 mmHg. Will uptitrate antihypertensives accordingly. Check HbA1c. Start on insulin sliding scale moderate dose protocol. Full code. NPO. Heparin drip will help with DVT prophylaxis as well. Attestations Medical Necessity Statement*: Requires further hospitalization for management of diabetic foot infection, foot abscess while osteomyelitis is ruled out, new diagnosis of DVT Time Spent in Patient Care: Greater than 35 minutes (>than 50% of time spent in counselling and/or direct pt care on unit). Coding Level of Care Code Acute Low Pressure Firer for Joellen Merrill Diagnoses Diabetic foot infection E11.628; L08.9 Foot abscess L02.619 Swelling of right knee joint M25.461 DVT (deep venous thrombosis) I82.409
[2021-02-11 16:38] LABS: Partial Thromboplastin Time 32.3 SECONDS (23.9-36.7)
[2021-02-11 17:47] LABS: Glucose Point of Care 114 mg/dL (70-110)
[2021-02-11] MEDS: losartan 50 mg Tablet PO (18:54)
[2021-02-11] MEDS: pregabalin 50 mg Capsule PO (19:02)
[2021-02-11 21:09] LABS: Glucose Point of Care 140 mg/dL (70-110)
[2021-02-11] MEDS: heparin drip 25,000 UNIT/500 ML PREMIX 30 UNIT IV (22:08)
[2021-02-12] VITALS: BP 138/80; PULSE 72; RESP 17; TEMP 36.5; O2SAT 94
[2021-02-12] MEDS: linezolid 600 mg Tablet PO (00:03)
[2021-02-12 00:25] LABS: Partial Thromboplastin Time 54.9 SECONDS (23.9-36.7)
[2021-02-12] MEDS: heparin 5,000 unit/mL INJ 1 mL IV (01:08)
[2021-02-12] MEDS: heparin drip 25,000 UNIT/500 ML PREMIX 32 UNIT IV (01:09)
[2021-02-12] MEDS: piperacillin-tazobactam 3.375 GM in sodium chloride 0.9% (plus) 50 ML IV ×2 (03:08→11:10)
[2021-02-12 04:00] VITALS: BP 157/78; PULSE 73; RESP 16; TEMP 36.6; O2SAT 93
[2021-02-12 06:55] LABS: Glucose Point of Care 144 mg/dL (70-110)
[2021-02-12 07:21] VITALS: BP 126/75; PULSE 68; RESP 16; TEMP 36.9; O2SAT 96
[2021-02-12 08:38] LABS: Basophils # 0.1 10^3/uL (0.0-0.1); Basophils % 0.8 %; Eosinophils # 0.4 10^3/uL (0.0-0.8); Hematocrit 42.1 % (42.0-52.0); Hemoglobin 13.6 g/dL (11.7-16.6); Lymphocytes # 2.2 10^3/uL (0.8-4.8); Lymphocytes % 22.2 %; Mean Corpuscular HGB Conc 32.3 g/dL (30.0-36.0); Mean Corpuscular Hemoglobin 29.2 pg (28.0-34.0); Mean Corpuscular Volume 90.3 fl (80-94); Mean Platelet Volume 8.8 fL (7.4-10.4); Monocytes # 0.8 10^3/uL (0.2-0.9); Monocytes % 8.1 %; Neutrophils # 6.19 10^3/uL (1.8-7.7); Neutrophils % 62.6 %; Nucleated Red Blood Cells % 0 %; Platelet Count 257 10^3/cmm (130-400); Red Blood Count 4.66 10^6/uL (4.1-5.3); Red Cell Distribution Width 12.2 % (12.1-15.1); White Blood Count 9.9 10^3/uL (4.0-10.0)
[2021-02-12] MEDS: aspirin 81 mg EC Tablet PO (08:41)
[2021-02-12] MEDS: pregabalin 50 mg Capsule PO (08:41)
[2021-02-12] MEDS: atorvastatin 40 mg Tablet 20 MG PO (08:42)
[2021-02-12] MEDS: clotrimazole 1% cream 30 gm 1 APPLIC TOPICAL (08:43)
[2021-02-12 08:46] VITALS: BP 150/78
[2021-02-12] MEDS: losartan 50 mg Tablet PO (08:46)
[2021-02-12 08:51] LABS: Estmated Average Glucose 206; Hemoglobin A1C 8.8 % (4.0-6.0)
[2021-02-12] MEDS: insulin lispro 100 unit/1 mL SUBCUT (08:51)
[2021-02-12 08:59] LABS: Alanine Aminotransferase 32 U/L (0-41); Albumin Level 3.5 g/dL (3.5-5.2); Alkaline Phosphatase 127 IU/L (40-130); Blood Urea Nitrogen 12 mg/dL (6-20); Calcium 9.2 mg/dL (8.5-10.5); Carbon Dioxide 21 mmol/L (22-29); Chloride 101 mmol/L (98-107); Globulin 4.2 g/dL (1.3-4.6); Glomerular Filtration Rate 68.5 mL/min (90-130); Glucose 147 mg/dL (65-115); Osmolality Calculated 284 mOsm/kg (285-295); Partial Thromboplastin Time 58.4 SECONDS (23.9-36.7); Sodium 136 mmol/L (136-145); Total Bilirubin 0.7 mg/dL (0.15-1.2); Total Protein 7.7 g/dL (6.6-8.7)
[2021-02-12 09:00] LABS: Anion Gap 18.4 (5-19); Potassium 4.4 mmol/L (3.5-5.1)
[2021-02-12 09:01] LABS: Aspartate Amino Transferase 32 U/L (0-40)
--- NOTE | 2021-02-12 10:00 | PC.SOCIAL ---
page 2 IMM Explained to pt page 2 IMM no questions voiced, copy provided to pt, IMM initialled, dated, and timed and put in chart.
--- NOTE | 2021-02-12 10:55 | PM.PN ---
Subjective Subjective: Interval history: Patient seems to be overall doing well. MRI of the foot was done yesterday and showed 1. The study is limited by patient motion artifact, particularly on the postcontrast images. 2. There is soft tissue edema noted in the medial aspect of the plantar surface of the forefoot. No focal fluid collection identified. Findings are consistent with cellulitis. The small collection seen on CT study of 02/08/2021 is not identified currently. 3. No evidence of osteomyelitis. Medications: Reviewed: Yes Vitals/I&O/Wt Last Vital Signs Temp 98.4 F 02/12/21 07:21 Pulse 68 02/12/21 07:21 Resp 16 02/12/21 07:21 BP 150/78 02/12/21 08:46 Pulse Ox 96 02/12/21 07:21 02/11/21 02/12/21 02/12/21 22:59 06:59 14:59 Intake Total 550 / 600 90.5 / 690.5 50 / 50 Balance 550 / 600 90.5 / 690.5 50 / 50 Physical Exam Narrative: EXAM NARRATIVE: Patient is conscious alert oriented X3 BMI 32.3 Right forefoot area showing stable cellulitis. No evidence of fluctuation or abscess formation clinically detected. Data : 02/12/21 08:18 02/12/21 08:18 A&P Assessment and plan (1) Diabetic foot infection: Is on the clinical examination and MRI findings with my personal interpretation. From general surgery standpoint of view no surgical intervention is indicated at this point. If continues to be a concern patient should be followed up on by ankle and foot surgery service. Diabetes education and management Highly recommend nonweightbearing right forefoot Assurance and education All questions have been answered and all concerns have been addressed to patient's satisfaction. Thank you for consulting general surgery to participate taking care Mr. Goldstein Status: Acute Attestations Medical Necessity Statement*: Per admitting service Time Spent in Patient Care: (>than 50% of time spent in counselling and/or direct pt care on unit). Coding Level of Care Code Acute Tester Wafer Substrate for Joellen Merrill Diagnoses Diabetic foot infection E11.628; L08.9
[2021-02-12 11:16] VITALS: BP 156/89; PULSE 70; RESP 16; TEMP 36.7; O2SAT 95
[2021-02-12 12:17] LABS: Glucose Point of Care 197 mg/dL (70-110)
--- NOTE | 2021-02-12 13:01 | PM.DCS ---
Discharge Providers Date of Admission: 02/09/21 08:14 Date of Discharge: February 12, 2021 Attending Provider at Admission: Onofre Pineda Attending Provider at Discharge: Henrry Bardales MD Consults: Surgery: Dr. Spence Primary Care Provider: Felipa García DO Diagnoses at Discharge Discharge Diagnosis (1) Diabetic foot infection: Status: Acute Reason for Visit Reason for Visit: Injury to Right Foot Hospital Course Hospital Course 60-year-old gentleman with history of DM 2, HTN, HLD, had stepped on a nail 6 days ago which pierced through his boot into his right foot, with swelling of his foot, has been for 3 days on cephalexin. Also has been having pain at the right knee. Chills at home. Had diffuse body aches. Here leukocytosis 10.7, currently afebrile, on 02/05 fever 101.6. Patient went to the hospital for further management of traumatic diabetic foot infection with possible abscess. Foot CT with 10 mm suspected focal fluid collection with surrounding subcutaneous edema seen at lateral aspect of first metatarsal head in the subcutaneous fat suggestive of small abscess. Surgery was consulted and patient was started on broad-spectrum antibiotics. Patient blood culture remain negative. To confirm the abscess collection and to rule out osteomyelitis patient underwent foot MRI which ruled out osteomyelitis and showed resolution of fluid collection. During hospitalization patient remained hemodynamically stable and afebrile. He also underwent venous duplex with small amount of debris in the right CFV and SFV likely a small amount of thrombus. No occlusive DVT right lower extremity. No evidence of left lower extremity DVT. During hospitalization patient was started on heparin drip and was later transitioned over to oral Eliquis. He is been discharged in medically stable condition with advice to take linezolid and ciprofloxacin for next 7 days. He is to take Eliquis 10 mg twice daily for next 7 days followed by 5 mg twice daily for next 6-month. He is advised to have lower limb Dopplers repeat in 6 months before stopping Eliquis. He is to follow-up with his primary care provider within next 1 week. Physical Exam Narrative: EXAM NARRATIVE: General: No acute distress, AO x3 HEENT: PERRLA, pupils bilaterally equal and reactive Chest: Normal vesicular breath sounds, no added sounds, equal good air entry bilaterally CVS: S1-S2 regular, no murmurs, no tachycardia, no gallops, no rubs Abdomen: Soft, nontender, no organomegaly, bowel sounds present Neuro: No focal deficits, no facial deformity, AO x3, power 5/5 in all limbs Extremity: OTHER: Improving edema of foot, perforation spot on plantar ball of foot. No drainage. Discharge Data Data Completed and Pending: Completed Studies During Hospitalization Category Date Time Status CT foot RT w con [id number] Stat Cat Scan 02/08/21 16:31 Completed XR foot RT min 3V * [id number] Stat Exams 02/08/21 14:51 Completed MR [place] RT wo/[place] [id number] Routine MRI 02/11/21 11:00 [place] [id number] Stat Ultrasound 02/08/21 14:57 Completed US soft tissue/ex tremity [id number] Urge nt Ultrasound 02/10/21 07:33 Completed Pending at discharge Category Date Time Status Blood Culture Sta t Lab 02/08/21 13:50 Results MRSA by PCR Routi ne Lab 02/11/21 12:19 Received Platelet Count Q2 D Lab 02/13/21 04:00 Ordered MR [place] RT wo/[place] [id number] Routine MRI 02/12/21 10:15 Ordered Labs from last 24 hours 02/12/21 02/12/21 02/12/21 11:14 08:18 08:18 WBC RBC Hgb Hct MCV MCH MCHC RDW Plt Count MPV Neut % (Auto) Lymph % (Auto) Mitchell % (Auto) Eos % (Auto) Baso % (Auto) Neut # (Auto) Lymph # (Auto) Mitchell # (Auto) Eos # (Auto) Baso # (Auto) Nucleated RBC % (a uto) Nucleated RBCs # APTT 58.4 H Sodium Potassium Chloride Carbon Dioxide Anion Gap BUN Creatinine GFR Calculation Glucose POC Glucose 197 H Estimat Average Gl ucose 206 Hemoglobin A1c 8.8 H Calculated Osmolal ity Calcium Total Bilirubin AST ALT Alkaline Phosphata se Total Protein Albumin Globulin 02/12/21 02/12/21 02/12/21 08:18 08:18 06:51 WBC 9.9 RBC 4.66 Hgb 13.6 Hct 42.1 MCV 90.3 MCH 29.2 MCHC 32.3 RDW 12.2 Plt Count 257 MPV 8.8 Neut % (Auto) 62.6 Lymph % (Auto) 22.2 Mitchell % (Auto) 8.1 Eos % (Auto) 4.0 Baso % (Auto) 0.8 Neut # (Auto) 6.19 Lymph # (Auto) 2.2 Mitchell # (Auto) 0.8 Eos # (Auto) 0.4 Baso # (Auto) 0.1 Nucleated RBC % (a uto) 0 Nucleated RBCs # 0.0 APTT Sodium 136 Potassium 4.4 Chloride 101 Carbon Dioxide 21 L Anion Gap 18.4 BUN 12 Creatinine 1.1 GFR Calculation 68.5 L Glucose 147 H POC Glucose 144 H Estimat Average Gl ucose Hemoglobin A1c Calculated Osmolal ity 284 L Calcium 9.2 Total Bilirubin 0.7 AST 32 ALT 32 Alkaline Phosphata se 127 Total Protein 7.7 Albumin 3.5 Globulin 4.2 02/11/21 02/11/21 02/11/21 23:43 21:06 17:44 WBC RBC Hgb Hct MCV MCH MCHC RDW Plt Count MPV Neut % (Auto) Lymph % (Auto) Mitchell % (Auto) Eos % (Auto) Baso % (Auto) Neut # (Auto) Lymph # (Auto) Mitchell # (Auto) Eos # (Auto) Baso # (Auto) Nucleated RBC % (a uto) Nucleated RBCs # APTT 54.9 H D Sodium Potassium Chloride Carbon Dioxide Anion Gap BUN Creatinine GFR Calculation Glucose POC Glucose 140 H 114 H Estimat Average Gl ucose Hemoglobin A1c Calculated Osmolal ity Calcium Total Bilirubin AST ALT Alkaline Phosphata se Total Protein Albumin Globulin 02/11/21 16:04 WBC RBC Hgb Hct MCV MCH MCHC RDW Plt Count MPV Neut % (Auto) Lymph % (Auto) Mitchell % (Auto) Eos % (Auto) Baso % (Auto) Neut # (Auto) Lymph # (Auto) Mitchell # (Auto) Eos # (Auto) Baso # (Auto) Nucleated RBC % (a uto) Nucleated RBCs # APTT 32.3 D Sodium Potassium Chloride Carbon Dioxide Anion Gap BUN Creatinine GFR Calculation Glucose POC Glucose Estimat Average Gl ucose Hemoglobin A1c Calculated Osmolal ity Calcium Total Bilirubin AST ALT Alkaline Phosphata se Total Protein Albumin Globulin Addt'l Data from Hospital Stay: Laboratory Results WBC 9.9 10^3/uL (4.0- 10.0) 02/12/21 08:18 RBC 4.66 10^6/uL (4.1 -5.3) 02/12/21 08:18 Hgb 13.6 g/dL (11.7-1 6.6) 02/12/21 08:18 Hct 42.1 % (42.0-52.0 ) 02/12/21 08:18 MCV 90.3 fl (80-94) 02/12/21 08:18 MCH 29.2 pg (28.0-34. 0) 02/12/21 08:18 MCHC 32.3 g/dL (30.0-3 6.0) 02/12/21 08:18 RDW 12.2 % (12.1-15.1 ) 02/12/21 08:18 Plt Count 257 10^3/cmm (130 -400) 02/12/21 08:18 MPV 8.8 fL (7.4-10.4) 02/12/21 08:18 Neut % (Auto) 62.6 % 02/12/21 08:18 Lymph % (Auto) 22.2 % 02/12/21 08:18 Mitchell % (Auto) 8.1 % 02/12/21 08:18 Eos % (Auto) 4.0 % 02/12/21 08:18 Baso % (Auto) 0.8 % 02/12/21 08:18 Neut # (Auto) 6.19 10^3/uL (1.8 -7.7) 02/12/21 08:18 Lymph # (Auto) 2.2 10^3/uL (0.8- 4.8) 02/12/21 08:18 Mitchell # (Auto) 0.8 10^3/uL (0.2- 0.9) 02/12/21 08:18 Eos # (Auto) 0.4 10^3/uL (0.0- 0.8) 02/12/21 08:18 Baso # (Auto) 0.1 10^3/uL (0.0- 0.1) 02/12/21 08:18 Nucleated RBC % (a uto) 0 % 02/12/21 08:18 Nucleated RBCs # 0.0 /100WBC 02/12/21 08:18 APTT 58.4 SECONDS (23. 9-36.7) H 02/12/21 08:18 Sodium 136 mmol/L (136-1 45) 02/12/21 08:18 Potassium 4.4 mmol/L (3.5-5 .1) 02/12/21 08:18 Chloride 101 mmol/L (98-10 7) 02/12/21 08:18 Carbon Dioxide 21 mmol/L (22-29) L 02/12/21 08:18 Anion Gap 18.4 (5-19) 02/12/21 08:18 BUN 12 mg/dL (6-20) 02/12/21 08:18 Creatinine 1.1 mg/dL (0.7-1. 2) 02/12/21 08:18 GFR Calculation 68.5 mL/min (90-1 30) L 02/12/21 08:18 Glucose 147 mg/dL (65-115 ) H 02/12/21 08:18 POC Glucose 197 mg/dL (70-110 ) H 02/12/21 11:14 Estimat Average Gl ucose 206 02/12/21 08:18 Hemoglobin A1c 8.8 % (4.0-6.0) H 02/12/21 08:18 Calculated Osmolal ity 284 mOsm/kg (285- 295) L 02/12/21 08:18 Calcium 9.2 mg/dL (8.5-10 .5) 02/12/21 08:18 Iron 34 ug/dL (59-158) L 02/11/21 04:11 TIBC 238 mcg/dl 02/11/21 04:11 % Saturation 14.2 % (20-50) L 02/11/21 04:11 Unsat Iron Binding 204 ug/dL (112-34 7) 02/11/21 04:11 Total Bilirubin 0.7 mg/dL (0.15-1 .2) 02/12/21 08:18 AST 32 U/L (0-40) 02/12/21 08:18 ALT 32 U/L (0-41) 02/12/21 08:18 Alkaline Phosphata se 127 IU/L (40-130) 02/12/21 08:18 Total Protein 7.7 g/dL (6.6-8.7 ) 02/12/21 08:18 Albumin 3.5 g/dL (3.5-5.2 ) 02/12/21 08:18 Globulin 4.2 g/dL (1.3-4.6 ) 02/12/21 08:18 Procalcitonin 0.16 ng/mL (0-0.5 ) 02/11/21 04:11 TSH 1.57 uIU/mL (0.27 -4.20) 02/11/21 04:11 Impressions Foot X-Ray 02/08/21 14:51 Impression: Negative right foot. Foot CT 02/08/21 16:31 IMPRESSION: 10 mm suspected focal fluid collection with surrounding subcutaneous edema seen at lateral aspect of the 1st metatarsal head in the subcutaneous fat suggestive of a small abscess, best seen series 2, image 118. Radiation Dose CTDIVOL = (mGy): DLP = 158.26 (mGy-cm) Soft Tissue Ultrasound 02/10/21 07:33 IMPRESSION: 1. Superficial soft tissue edema or cellulitis. 2. Significant limitation of spatial resolution by only static image review. Presumably shadowing bone structures limit accuracy of assessment of delineation of adjacent soft tissues. The imaging modality of choice would include MRI with gadolinium. Radiation Dose CTDIVOL = (mGy): DLP = (mGy-cm) Foot MRI 02/11/21 11:00 IMPRESSION: 1. The study is limited by patient motion artifact, particularly on the postcontrast images. 2. There is soft tissue edema noted in the medial aspect of the plantar surface of the forefoot. No focal fluid collection identified. Findings are consistent with cellulitis. The small collection seen on CT study of 02/08/2021 is not identified currently. 3. No evidence of osteomyelitis. Radiation Dose CTDIVOL = (mGy): DLP = (mGy-cm) Venous duplex CONCLUSIONS Small amount of debris in the right CFV and SFV likely a small amount of thrombus. No occlusive DVT RLE No evidence of left lower extremity DVT. Vitals: Last Vital Signs Temp 98.0 F 02/12/21 11:16 Pulse 70 02/12/21 11:16 Resp 16 02/12/21 11:16 BP 156/89 02/12/21 11:16 Pulse Ox 95 02/12/21 11:16 Discharge Plan Discharge Patient Disposition: Home Condition: Stable Prescriptions: New linezolid 600 mg Tablet 600 mg PO Q12H 7 Days Qty: 14 RF: 0 ciprofloxacin HCl 500 mg tablet 500 mg PO BID 7 Days Qty: 14 RF: 0 Eliquis DVT-PE Treat 30D Start 5 mg (74 tabs) tablets,dose pack See Rx Instructions .ROUTE .COMPLEX Qty: 74 RF: 0 Continued aspirin 81 mg tablet,delayed release (DR/EC) 81 mg PO DAILY RF: 0 acetaminophen [Tylenol] 325 mg tablet 325 mg PO QID PRN (Reason: Pain) RF: 0 clotrimazole 1 % cream 1 applic topical BID 28 Days Qty: 30 RF: 0 (DME) diabetic shoes See Rx Instructions .Route .MEDSUPPLY Qty: 1 RF: 0 pregabalin 50 mg capsule 50 mg PO BID Qty: 180 RF: 1 fluticasone propionate [Flonase Allergy Relief] 50 mcg/actuation spray,suspension 2 spray intranasal DAILY 90 Days Qty: 16 RF: 2 atorvastatin 20 mg tablet 20 mg PO DAILY Qty: 90 RF: 1 loratadine [Claritin] 10 mg tablet 10 mg PO DAILY 90 Days Qty: 90 RF: 1 losartan 50 mg tablet 50 mg PO DAILY 30 Days Qty: 90 RF: 1 glyburide 5 mg tablet 5 mg PO DAILY Qty: 90 RF: 0 metformin 500 mg tablet 500 mg PO BID 90 Days Qty: 180 RF: 0 canagliflozin 100 mg tablet 100 mg PO QAM Qty: 90 RF: 0 Januvia 100 mg tablet 100 mg PO DAILY Qty: 90 RF: 0 hydrocodone-acetaminophen 5-325 mg tablet 1 tab PO Q6H PRN (Reason: pain) Qty: 30 RF: 0 Changed hydrochlorothiazide 12.5 mg tablet 25 mg PO DAILY Qty: 90 RF: 1 Discontinued cephalexin 500 mg capsule 500 mg PO TID 7 Days Qty: 21 RF: 0 Discharge Orders: Discharge Order (Routine); Ordered 02/12/21 Ordered By: Henrry Bardales Referrals: Felipa García DO [Primary Care Provider] - 7-10 days Discharge Diet: Cardiac, Diabetic, Low Salt and Low Cholesterol Discharge Activity: Resume usual activity Patient Instructions: Opioid Safety Activity Restrictions/Additional Instructions: Please follow-up with her primary care provider within next 1 week. Please take ciprofloxacin and linezolid which are the oral antibiotics for next 7 days. Poor tablets to take taken twice a day. Eliquis is a blood thinner which is supposed to take for next 6 months. Take 10 mg tablet twice daily for next 1 week followed by 5 mg tablet twice daily for next 6 months. You should repeat a lower limb Doppler in 6 months to confirm resolution of DVT before stopping the medications. Discharge Attestations Time Spent in Discharge Care*: greater than 30 min Specific Discharge Activities: educating patient, discussing with pcp/other providers, discussing with case management coordinator/social workers/dc planners, documenting/other paperwork and evaluating patient/reviewing data Status at Discharge: Cognitive status at discharge: cognitively intact, Behavioral status at discharge: cooperative, Functional status at discharge: independent ambulation Overall status at discharge: patient is back to baseline Quality Metrics Clinical Quality Measures During this hospital stay, did patient experience: None Coding Level of Care Code Acute Chg FW DC note Diagnoses Diabetic foot infection E11.628; L08.9
[2021-02-12 15:10] VITALS: BP 156/89; PULSE 70; RESP 16; TEMP 36.7; O2SAT 95
--- NOTE | 2021-02-12 16:13 | PC.SOCIAL ---
Addendum entered by Alissa Souza RN 02/12/21 16:26: Unable to get [facility] to [facility]. Called patient and updated him. He will try to fill it now and let [facility] know it has been approved. Original Note: Prior Auth completed for Linezolid and approved. Called [facility] pharmacy to update.
== END 2021-02-12 14:40 | disposition home or self-care (01) | DRG 638 ==
LOC: ER 14:51 → MEDSURG 19:49 → OPS 02-09 08:07 → MEDSURG 02-09 08:15
PROVIDERS: Internal Medicine; Admitting Provider Internal Medicine; Emergency Provider Family Medicine; PCP Family Medicine; Visit Provider Student in an Organized Health Care Education/Training Program
DX: E11.628 Type 2 diabetes mellitus with other skin complications (principal); L02.611 Cutaneous abscess of right foot; L03.115 Cellulitis of right lower limb; E11.42 Type 2 diabetes mellitus with diabetic polyneuropathy; I10 Essential (primary) hypertension; E78.5 Hyperlipidemia, unspecified; F17.220 Nicotine dependence, chewing tobacco, uncomplicated; I82.811 Embolism and thrombosis of superficial veins of right lower extremity; S91.331D Puncture wound without foreign body, right foot, subsequent encounter; W45.0XXD Nail entering through skin, subsequent encounter; M25.461 Effusion, right knee; Z79.82 Long term (current) use of aspirin; Z79.84 Long term (current) use of oral hypoglycemic drugs; Z79.891 Long term (current) use of opiate analgesic
CPT/HCPCS: 36415; 36416; 73630; 73701; 73720; 76882; 80053; 82962; 83036; 83540; 83550; 84145; 84443; 85025; 85730; 87040; 87641; 93971; 96365; 96367; 96372; 97161; 99285; A9577; J1644; J1815; J2543; J3370; J7030; J7050; L3260; Q9967

== ENCOUNTER 2021-02-21 23:13 | Emergency (ER) | payer MEDICARE, SELFPAY ==
[2021-02-21 23:22] VITALS: BP 176/106; PULSE 81; RESP 18; TEMP 36.6; O2SAT 98; BMI 31.1
--- NOTE | 2021-02-21 23:42 | CTR_ITS ---
PROCEDURE INFORMATION: Exam: CT Abdomen And Pelvis With Contrast Exam date and time: 02/21/2021 11:42 PM Age: 60 years old Clinical indication: Other: Hemnaturia; Abdominal pain; Periumbilical; Prior surgery; Surgery type: Colon. Femur; Patient HX: Mid abd/back pain with hematuria. ; Additional info: Abd pain TECHNIQUE: Imaging protocol: Computed tomography of the abdomen and pelvis with contrast. Radiation optimization: All CT scans at this facility use at least one of these dose optimization techniques: automated exposure control; mA and/or kV adjustment per patient size (includes targeted exams where dose is matched to clinical indication); or iterative reconstruction. Contrast material: OMNI 300; Contrast volume: 95 ml; Contrast route: INTRAVENOUS (IV); COMPARISON: CT abdomen pelvis wo con [id number] 09/03/2015 10:34 PM RADIATION DOSE METRICS: Total DLP (mGy-cm): 1779.84 FINDINGS: Liver: Normal. No mass. Gallbladder and bile ducts: Stable cholecystectomy. Pancreas: Normal. No ductal dilation. Spleen: Normal. No splenomegaly. Adrenal glands: Normal. No mass. Kidneys and ureters: Normal. No hydronephrosis. Stomach and bowel: Unremarkable. No obstruction. No mucosal thickening. Appendix: No evidence of appendicitis. Intraperitoneal space: Unremarkable. No free air. No significant fluid collection. Vasculature: Calcification of the abdominal aorta and/or iliac arteries consistent with atherosclerotic vessel disease. One or more calcified pelvic phleboliths. Lymph nodes: Unremarkable. No enlarged lymph nodes. Urinary bladder: Unremarkable as visualized. Reproductive: Unremarkable as visualized. Bones/joints: Mild to moderate multilevel spine degenerative changes including degenerative disc disease, spondylosis and facet degenerative changes. Soft tissues: Unremarkable. CT/CT abdomen pelvis w con* [id number] IMPRESSION: No acute findings. Radiation Dose CTDIVOL = (mGy): DLP = 1779.84 (mGy-cm)
--- NOTE | 2021-02-21 23:46 | W.ED.ABDPA2 ---
HPI - Abdominal Pain General: Chief Complaint: Abdominal Pain Stated Complaint: Urinating blood, Abd and lower back pain. Time Seen by Provider: 02/21/21 23:17 Source: patient Mode of arrival: ambulatory Limitations: no limitations History of Present Illness: HPI narrative: 60-year-old male who states that he was seen admitted here for a week with a cellulitis to his foot after stepping on a nail has been home for a week. States while here I saw a possible DVT and start him on Eliquis states that over the last day has been having flank and abdominal pain is been urinating blood. He denies any vomiting or diarrhea states pain sharp in nature rates it a 6 out of 10 denies any fever denies any worst improving factors. Associated Symptoms: Reports hematuria; Denies chills and fever(s) Review of Systems Const: Denies: fever(s), chills, body aches or change in appetite Eyes: Denies: blurry vision or eye discomfort ENMT: Denies: throat pain or dental pain Card: Denies: chest pain Resp: Denies: dyspnea GI: Reports: abdominal pain : Reports: flank pain and hematuria Musc: Denies: neck pain or back pain Skin/Breast: Denies: rash Neuro: Denies: headache(s) Psych: Denies: depression Mahad/Lymph: Denies: easy bruising All/Imm: Denies: urticaria PFSH ED PFSH: Medical History Diabetic infection of right foot Diabetic neuropathy Eustachian tube dysfunction Hyperlipidemia Hypertension 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 SOB (shortness of breath) Tinea corporis Type 2 diabetes mellitus with diabetic polyneuropathy, without long-term current use of insulin Surgical History History of colon surgery History of elbow surgery right History of hip surgery right Status post left foot surgery Family History Other Cancer Diabetes Diabetes insipidus Heart disease Hypertension Stroke Social History Smoking and tobacco status: never smoked (chew) Alcohol intake: never Lives independently: Yes Household members: significant other Marital status: Current occupational status: disabled History of recent travel: No Physical Exam Const: COMMON NORMALS: no acute distress, patient oriented x3 and healthy appearing HENMT: COMMON NORMALS: normocephalic and atraumatic HEAD & SCALP: normocephalic and atraumatic Eye: COMMON NORMALS: Equal, round and reactive pupils present and EOMs intact bilaterally PUPIL: Yes Equal, round and reactive pupils present Neck/C-Spine: COMMON NORMALS: full ROM and supple Chest: COMMONS NORMALS: normal inspection of the chest and normal palpation of entire chest wall Resp: COMMON NORMALS: normal respiratory effort, No retractions, No use of accessory muscles and clear to auscultation bilaterally AUSCULTATION: clear to auscultation bilaterally Cardio: COMMON NORMALS: regular rate, regular rhythm and No murmurs present (Cardio) RATE: regular rate RHYTHM: regular rhythm GI: COMMON NORMALS: Normal to inspection, nondistended, normoactive bowel sounds present, Soft to palpation, non-tender and no masses PALPATION: Yes Soft to palpation Extremity: COMMON NORMALS: normal to inspection and full ROM Neuro: COMMON NORMALS: patient oriented x3, moves all extremities and no focal motor deficits Psych: COMMON NORMALS: mental status grossly normal, Normal thought process present and cooperative THOUGHT PROCESS: Normal thought process present Skin: COMMON NORMALS: no rashes or lesions noted and no wounds GENERAL SKIN EXAM: no rashes or lesions noted Course Vital Signs: Vital signs: Vital Signs Temperature 98 F 02/21/21 23:22 Pulse Rate 81 02/21/21 23:22 Respiratory Rate 18 02/21/21 23:22 Blood Pressure 176/106 02/21/21 23:22 Pulse Oximetry 98 02/21/21 23:22 MDM - Abdominal Pain MDM Narrative: Medical decision making narrative: Patient presents here with hematuria along with abdominal pain he is on Eliquis patient CT scan and blood work are all normal he still on antibiotics for his foot infection he is to follow-up with his PCP next week as scheduled on Thursday he is return if worsening he understands agrees to plan. Lab Data: Labs: Lab Results 02/21/21 02/21/21 02/21/21 23:59 23:59 23:59 WBC 11.6 10^3/uL H 10 ^3/uL (4.0-10.0) RBC 4.80 10^6/uL 10^6 /uL (4.1-5.3) Hgb 13.8 g/dL g/dL (11.7-16.6) Hct 42.2 % % (42.0-52.0) MCV 87.9 fl fl (80-94) MCH 28.8 pg pg (28.0-34.0) MCHC 32.7 g/dL g/dL (30.0-36.0) RDW 12.4 % % (12.1-15.1) Plt Count 248 10^3/cmm 10^3 /cmm (130-400) MPV 8.5 fL fL (7.4-10.4) Neut % (Auto) 67.8 % % Lymph % (Auto) 20.0 % % [place] % (Auto) 7.7 % % Eos % (Auto) 2.9 % % Baso % (Auto) 1.0 % % Neut # (Auto) 7.86 10^3/uL H 10 ^3/uL (1.8-7.7) Lymph # (Auto) 2.3 10^3/uL 10^3/ uL (0.8-4.8) [place] # (Auto) 0.9 10^3/uL 10^3/ uL (0.2-0.9) Eos # (Auto) 0.3 10^3/uL 10^3/ uL (0.0-0.8) Baso # (Auto) 0.1 10^3/uL 10^3/ uL (0.0-0.1) Nucleated RBC % (a uto) 0 % % Nucleated RBCs # 0.0 /100WBC /100W BC PT 19.50 SECONDS H S ECONDS (12.1-14.9) INR 1.61 H (0.8-1.2) Sodium 133 mmol/L L mmol /L (136-145) Potassium 3.7 mmol/L mmol/L (3.5-5.1) Chloride 100 mmol/L mmol/L (98-107) Carbon Dioxide 19 mmol/L L mmol/ L (22-29) Anion Gap 17.7 (5-19) BUN 14 mg/dL mg/dL (6-20) Creatinine 1.3 mg/dL H mg/dL (0.7-1.2) GFR Calculation 56.5 mL/min L mL/ min (90-130) Glucose 127 mg/dL H mg/dL (65-115) Calculated Osmolal ity 278 mOsm/kg L mOs m/kg (285-295) Calcium 9.3 mg/dL mg/dL (8.5-10.5) Total Bilirubin 0.6 mg/dL mg/dL (0.15-1.2) AST 20 U/L U/L (0-40) ALT 32 U/L U/L (0-41) Alkaline Phosphata se 134 IU/L H IU/L (40-130) Total Protein 7.6 g/dL g/dL (6.6-8.7) Albumin 3.8 g/dL g/dL (3.5-5.2) Globulin 3.8 g/dL g/dL (1.3-4.6) Lipase 28 U/L U/L (13-60) Urine Color Urine Appearance Urine pH Ur Specific Gravit y Urine Protein Urine Glucose (UA) Urine Ketones Urine Blood Urine Nitrate Urine Bilirubin Urine Urobilinogen Ur Leukocyte Munira ase Urine RBC Urine WBC Ur Squamous Epith Cells Amorphous Sediment Urine Bacteria 02/22/21 01:03 WBC RBC Hgb Hct MCV MCH MCHC RDW Plt Count MPV Neut % (Auto) Lymph % (Auto) [place] % (Auto) Eos % (Auto) Baso % (Auto) Neut # (Auto) Lymph # (Auto) [place] # (Auto) Eos # (Auto) Baso # (Auto) Nucleated RBC % (a uto) Nucleated RBCs # PT INR Sodium Potassium Chloride Carbon Dioxide Anion Gap BUN Creatinine GFR Calculation Glucose Calculated Osmolal ity Calcium Total Bilirubin AST ALT Alkaline Phosphata se Total Protein Albumin Globulin Lipase Urine Color Brown (Yellow) Urine Appearance Hazy A (CLEAR) Urine pH 6.5 (5-7) Ur Specific Gravit y 1.025 (1.005-1.030) Urine Protein 1+ H (Negative) Urine Glucose (UA) Trace H (Normal) Urine Ketones Negative (Negative) Urine Blood 2+ H (Negative) Urine Nitrate Positive H (Negative) Urine Bilirubin Neg (Negative) Urine Urobilinogen Norm mg/dL mg/dL (Negative) Ur Leukocyte Munira ase 1+ H (Negative) Urine RBC Too numerous to c nt /hpf H /hpf (0-2) Urine WBC 0-4 /hpf H /hpf (0-5) Ur Squamous Epith Cells 0-4 /hpf H /hpf (0-5) Amorphous Sediment Not Reportable Urine Bacteria Trace /hpf /hpf (NONE) Discharge Plan Discharge Patient Disposition: Home Clinical Impression: Hematuria Abdominal pain Qualifiers: Abdominal location: generalized Qualified Code(s): R10.84 - Generalized abdominal pain Condition: Stable Prescriptions: No Action aspirin 81 mg tablet,delayed release (DR/EC) 81 mg PO DAILY RF: 0 acetaminophen [Tylenol] 325 mg tablet 325 mg PO QID PRN (Reason: Pain) RF: 0 clotrimazole 1 % cream 1 applic topical BID 28 Days Qty: 30 RF: 0 (DME) diabetic shoes See Rx Instructions .Route .MEDSUPPLY Qty: 1 RF: 0 pregabalin 50 mg capsule 50 mg PO BID Qty: 180 RF: 1 atorvastatin 20 mg tablet 20 mg PO DAILY Qty: 90 RF: 1 loratadine [Claritin] 10 mg tablet 10 mg PO DAILY 90 Days Qty: 90 RF: 1 losartan 50 mg tablet 50 mg PO DAILY 30 Days Qty: 90 RF: 1 glyburide 5 mg tablet 5 mg PO DAILY Qty: 90 RF: 0 metformin 500 mg tablet 500 mg PO BID 90 Days Qty: 180 RF: 0 canagliflozin 100 mg tablet 100 mg PO QAM Qty: 90 RF: 0 Januvia 100 mg tablet 100 mg PO DAILY Qty: 90 RF: 0 hydrochlorothiazide 12.5 mg tablet 25 mg PO DAILY Qty: 90 RF: 1 Eliquis DVT-PE Treat 30D Start 5 mg (74 tabs) tablets,dose pack See Rx Instructions .ROUTE .COMPLEX Qty: 74 RF: 0 hydrocodone-acetaminophen 5-325 mg tablet 1 tab PO Q6H PRN (Reason: pain) Qty: 30 RF: 0 Discharge Orders: Discharge ED (Routine); Ordered 02/22/21 Ordered By: Ji Swanson Referrals: Joao Shirley MD [Physician] - 1-3 days Felipa García DO [Primary Care Provider] - 1-3 days Discharge Diet: Advance as tolerated Discharge Activity: Resume usual activity Patient Instructions: Hematuria (ED), Abdominal Pain (ED) Coding Level of Care Code ED Speech Lang Path Therapist for Chg Fwd Exam Comprehensive
[2021-02-21] MEDS: iohexol 300 mg/mL 100 mL Btl IV (23:55)
[2021-02-22] MEDS: morphine 4 mg/mL SDV 1 mL IVP (00:05)
[2021-02-22] MEDS: ondansetron 2 mg/ML SDV 2 mL 4 MG IVP (00:05)
[2021-02-22 00:15] LABS: Basophils # 0.1 10^3/uL (0.0-0.1); Eosinophils # 0.3 10^3/uL (0.0-0.8); Eosinophils % 2.9 %; Hematocrit 42.2 % (42.0-52.0); Hemoglobin 13.8 g/dL (11.7-16.6); Lymphocytes # 2.3 10^3/uL (0.8-4.8); Mean Corpuscular HGB Conc 32.7 g/dL (30.0-36.0); Mean Corpuscular Hemoglobin 28.8 pg (28.0-34.0); Mean Corpuscular Volume 87.9 fl (80-94); Mean Platelet Volume 8.5 fL (7.4-10.4); Monocytes # 0.9 10^3/uL (0.2-0.9); Monocytes % 7.7 %; Neutrophils # 7.86 10^3/uL (1.8-7.7); Neutrophils % 67.8 %; Nucleated Red Blood Cells % 0 %; Platelet Count 248 10^3/cmm (130-400); Red Cell Distribution Width 12.4 % (12.1-15.1); White Blood Count 11.6 10^3/uL (4.0-10.0)
[2021-02-22 00:33] LABS: Alanine Aminotransferase 32 U/L (0-41); Albumin Level 3.8 g/dL (3.5-5.2); Alkaline Phosphatase 134 IU/L (40-130); Anion Gap 17.7 (5-19); Aspartate Amino Transferase 20 U/L (0-40); Blood Urea Nitrogen 14 mg/dL (6-20); Calcium 9.3 mg/dL (8.5-10.5); Carbon Dioxide 19 mmol/L (22-29); Chloride 100 mmol/L (98-107); Globulin 3.8 g/dL (1.3-4.6); Glomerular Filtration Rate 56.5 mL/min (90-130); Glucose 127 mg/dL (65-115); Lipase 28 U/L (13-60); Osmolality Calculated 278 mOsm/kg (285-295); Potassium 3.7 mmol/L (3.5-5.1); Sodium 133 mmol/L (136-145); Total Bilirubin 0.6 mg/dL (0.15-1.2); Total Protein 7.6 g/dL (6.6-8.7)
[2021-02-22 00:37] LABS: INR 1.61 (0.8-1.2)
[2021-02-22 01:28] LABS: Add Urine Microscopic? YES; Bilirubin Urine Neg (Negative); Blood Urine 2+ (Negative); Glucose Urine UA Trace (Normal); Ketones Urine Negative (Negative); Leukocyte Esterase Urine 1+ (Negative); Nitrate Urine Positive (Negative); Protein Urine 1+ (Negative); Specific Gravity, Urine 1.025 (1.005-1.030); Urine Appearance Hazy (CLEAR); Urine Color Brown (Yellow); Urobilinogen Urine Norm (Negative); pH Urine 6.5 (5-7)
[2021-02-22 01:29] LABS: Add Urine Culture? Yes; Bacteria Urine TRACE /hpf; RBC Urine TOO NUMEROUS TO CNT /hpf (0-2); Squamous Epithelial Cell Urine 0-4 /hpf (0-5); WBC Urine 0-4 /hpf (0-5)
[2021-02-22 01:57] VITALS: BP 137/72; PULSE 70; RESP 16; O2SAT 97
--- NOTE | 2021-02-26 05:31 | DCPLANNER ---
delicatessen store manager had message to schedule a follow up appointment for patient with Dr. Shirley. delicatessen store manager emailed patients information to Fausto Murray and Noemi at the office of Dr. Shirley. Patients information will be printed and reviewed. Clinic will call patient with appointment information.
--- NOTE | 2021-02-27 08:15 | DCPLANNER ---
Patient has a follow up appointment scheduled for February at 2:[address] Shirley. Clinic will call patient with appointment information.
--- NOTE | 2021-03-22 11:59 | DCPLANNER ---
Patient had a follow up appointment scheduled with Dr. Shirley - patient did attend appointment.
== END 2021-02-22 01:58 | disposition home or self-care (01) ==
PROVIDERS: Emergency Provider Emergency Medicine; PCP Family Medicine
DX: R31.9 Hematuria, unspecified (principal); R10.84 Generalized abdominal pain; F17.220 Nicotine dependence, chewing tobacco, uncomplicated; Z79.82 Long term (current) use of aspirin; Z79.01 Long term (current) use of anticoagulants; Z79.891 Long term (current) use of opiate analgesic; E11.9 Type 2 diabetes mellitus without complications; Z79.84 Long term (current) use of oral hypoglycemic drugs; I10 Essential (primary) hypertension
CPT/HCPCS: 74177; 80053; 81001; 83690; 85025; 85610; 87086; 96374; 96375; 99283; J2270; J2405; Q9967

== ENCOUNTER 2021-03-01 09:58 | Outpatient (CLI) | payer MEDICARE, SELFPAY ==
--- NOTE | 2021-03-01 10:00 | USCV_ITS ---
Baljit Goldstein Age: 60 Gender: M : 1960 Exam Date: 03/01/2021 10:22 Ordering Phys: Mica Silvestre Technologist: BULL Exam Location: [facility] [place] Indication: F/U exam of 02/08/2021. Per Patient stepped on a nail and had a subsequent DVT. Taking anticoagulants. On exam of 02/08/2021, a small area of mural thickening was seen at the SAPH/FEM JCT. HISTORY: F/U exam of 02/09/2012. Pet Patient: stepped on a nail and had a subsequent DVT. Taking coagulants. Previous exam showed a small area of mural thickening at the SAPH/FEM JCT PROCEDURES: Venous duplex imaging was performed in only the right lower extremity. The following venous structures were evaluated: common femoral vein, profunda vein, proximal portion of the greater saphenous vein, superficial femoral vein, lesser saphenous vein, and the popliteal vein. In addition, the posterior tibial and peroneal trunk were evaluated. Serial compression, augmentation maneuvers, and spectral Doppler flow evaluation were performed. CONCLUSIONS No evidence of right lower extremity DVT. Previous desribed area of mural thickening at the Saphenous femoral junction is unchanged Rex Elizabeth MD (Electronically Signed) Final Date: 01 March 2021 17:18 S
== END 2021-03-01 09:59 | disposition home or self-care (01) ==
LOC: RAD 10:01
PROVIDERS: PCP Family Medicine; Visit Provider Registered Nurse Neonatal Intensive Care
DX: Z86.718 Personal history of other venous thrombosis and embolism (principal)
CPT/HCPCS: 93971

== ENCOUNTER 2021-03-15 08:28 | Outpatient (CLI) | payer MEDICARE, SELFPAY ==
[2021-03-15 09:24] LABS: Prostate Specific Antigen 0.812 ng/mL (0-4)
== END 2021-03-15 08:29 | disposition home or self-care (01) ==
PROVIDERS: PCP Family Medicine; Visit Provider Urology
DX: Z12.5 Encounter for screening for malignant neoplasm of prostate (principal); R31.0 Gross hematuria
CPT/HCPCS: 81003; 84153; 87086; 88112

== ENCOUNTER → 2021-04-30 09:26 | Outpatient (BNVA) | payer MEDICARE, SELFPAY | PROVIDERS: PCP Family Medicine; Visit Provider Urology | DX: R33.9 Retention of urine, unspecified (principal); R31.0 Gross hematuria; N40.1 Benign prostatic hyperplasia with lower urinary tract symptoms | CPT/HCPCS: 81003 ==

== ENCOUNTER → 2021-05-10 09:04 | Outpatient (BNVA) | payer MEDICARE, SELFPAY | PROVIDERS: PCP Family Medicine; Visit Provider Family Medicine | DX: E78.5 Hyperlipidemia, unspecified (principal); E11.42 Type 2 diabetes mellitus with diabetic polyneuropathy | CPT/HCPCS: 80053; 80061; 82043; 83036; 85025 ==

== ENCOUNTER → 2022-04-22 14:57 | Outpatient (BNVA) | payer MEDICARE, SELFPAY | PROVIDERS: PCP Family Medicine; Visit Provider Family Medicine | DX: E11.42 Type 2 diabetes mellitus with diabetic polyneuropathy (principal); R35.1 Nocturia; E78.5 Hyperlipidemia, unspecified; I10 Essential (primary) hypertension | CPT/HCPCS: 80053; 80061; 82043; 83036; 84153; 85025 ==

== ENCOUNTER → 2022-08-18 14:31 | Outpatient (BNVA) | payer MEDICARE, SELFPAY | PROVIDERS: PCP Family Medicine; Visit Provider Family Medicine | DX: E11.42 Type 2 diabetes mellitus with diabetic polyneuropathy (principal) | CPT/HCPCS: 80053; 83036 ==

== ENCOUNTER → 2022-09-11 15:54 | Outpatient (BNVA) | payer MEDICARE, SELFPAY | PROVIDERS: PCP Family Medicine; Visit Provider Surgery | DX: M62.08 Separation of muscle (nontraumatic), other site (principal) | CPT/HCPCS: 99203; 99214 ==

== ENCOUNTER → 2022-10-14 13:42 | Outpatient (BNVA) | payer MEDICARE, SELFPAY | PROVIDERS: PCP Family Medicine; Visit Provider Family Medicine | DX: E11.42 Type 2 diabetes mellitus with diabetic polyneuropathy (principal) | CPT/HCPCS: 80048 ==

== ENCOUNTER → 2022-12-26 13:34 | Outpatient (BNVA) | payer MEDICARE, SELFPAY | PROVIDERS: PCP Family Medicine; Visit Provider Family Medicine | DX: E11.42 Type 2 diabetes mellitus with diabetic polyneuropathy (principal) | CPT/HCPCS: 80053; 83036 ==

== ENCOUNTER → 2023-03-26 09:10 | Outpatient (BNVA) | payer MEDICARE, SELFPAY | PROVIDERS: PCP Family Medicine; Visit Provider Family Medicine | DX: E11.42 Type 2 diabetes mellitus with diabetic polyneuropathy (principal); I10 Essential (primary) hypertension; R53.83 Other fatigue; G47.33 Obstructive sleep apnea (adult) (pediatric) | CPT/HCPCS: 80048; 83036; 84443 ==

== ENCOUNTER → 2023-09-07 11:13 | Outpatient (BNVA) | payer MEDICARE, SELFPAY | PROVIDERS: PCP Family Medicine; Visit Provider Family Medicine | DX: E11.42 Type 2 diabetes mellitus with diabetic polyneuropathy (principal); Z13.6 Encounter for screening for cardiovascular disorders; R35.1 Nocturia; I10 Essential (primary) hypertension; Z79.899 Other long term (current) drug therapy | CPT/HCPCS: 80053; 80061; 82043; 83036; 84153 ==

== ENCOUNTER → 2023-11-05 09:15 | Outpatient (BNVA) | payer MEDICARE, SELFPAY | PROVIDERS: PCP Family Medicine Adult Medicine; Visit Provider Family Medicine Adult Medicine | DX: M19.011 Primary osteoarthritis, right shoulder (principal); M25.711 Osteophyte, right shoulder; M85.611 Other cyst of bone, right shoulder | CPT/HCPCS: 73030 ==

== ENCOUNTER → 2024-04-26 10:44 | Outpatient (BNVA) | payer MEDICARE, SELFPAY | PROVIDERS: PCP Family Medicine; Visit Provider Family Medicine | DX: E11.9 Type 2 diabetes mellitus without complications (principal); Z79.4 Long term (current) use of insulin; M75.101 Unspecified rotator cuff tear or rupture of right shoulder, not specified as traumatic | CPT/HCPCS: 80053; 83036 ==

== ENCOUNTER → 2024-07-20 08:59 | Outpatient (BNVA) | payer MEDICARE, SELFPAY | PROVIDERS: PCP Family Medicine; Visit Provider Family Medicine | DX: E11.9 Type 2 diabetes mellitus without complications (principal); Z79.4 Long term (current) use of insulin; I10 Essential (primary) hypertension; E78.5 Hyperlipidemia, unspecified; G47.33 Obstructive sleep apnea (adult) (pediatric); M19.90 Unspecified osteoarthritis, unspecified site; N40.1 Benign prostatic hyperplasia with lower urinary tract symptoms; M75.101 Unspecified rotator cuff tear or rupture of right shoulder, not specified as traumatic | CPT/HCPCS: 80048; 83036 ==

== ENCOUNTER → 2024-12-01 15:07 | Outpatient (BNVA) | payer MEDICARE, SELFPAY | PROVIDERS: PCP Family Medicine; Visit Provider Family Medicine | DX: E11.9 Type 2 diabetes mellitus without complications (principal); Z79.4 Long term (current) use of insulin | CPT/HCPCS: 80048; 83036 ==